=== PATIENT | male | born 1970 | race Caucasian/White ===

== ENCOUNTER 2017-04-10 17:04 | Outpatient (CLI) | payer OTHER | END 2017-04-10 17:05 | disposition EMS.NT | LOC: EMS 17:04 | PROVIDERS: ATTEND Surgery | DX: Z04.1 Encounter for examination and observation following transport accident (principal); V59.9XXA Occupant (driver) (passenger) of pick-up truck or van injured in unspecified traffic accident, initial encounter; Y92.488 Other paved roadways as the place of occurrence of the external cause ==

== ENCOUNTER 2017-04-10 18:19 | Emergency (ER) | payer OTHER ==
[2017-04-10 18:45] VITALS: BP 162/108
[2017-04-10] MEDS ORDERED: IBUPROFEN 400 MG TABLET PO STA (20:22)
[2017-04-10] MEDS ORDERED: IBUPROFEN 400 MG TABLET PO ONE (20:34)
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
== END 2017-04-10 21:56 | disposition home or self-care (01) ==
LOC: ED 18:19
DX: T14.8 Other injury of unspecified body region (principal); V48.0XXA Car driver injured in noncollision transport accident in nontraffic accident, initial encounter; R10.33 Periumbilical pain
CPT/HCPCS: 99283; A9270

== ENCOUNTER 2020-06-06 07:08 | Outpatient (CLI) | payer OTHER ==
[2020-06-06 13:21] LABS: BASOPHILS % (AUTO) 0.7 %; EOSINOPHILS # (AUTO) 0.1 10^3/uL (0.0-0.7); EOSINOPHILS % (AUTO) 2.4 %; HGB - HEMOGLOBIN 14.5 g/dL (14.0-18.0); LYMPHOCYTES # (AUTO) 1.4 10^3/uL (1.5-3.5); MEAN CORPUSCULAR HEMOGLOBIN 29.4 pg (27.0-31.0); MEAN CORPUSCULAR HGB CONC 32.4 g/dL (32.0-36.0); MEAN CORPUSCULAR VOLUME 90.9 fL (80.0-94.0); MEAN PLATELET VOLUME 9.6 fL (7.4-11.4); MONOCYTES # (AUTO) 0.5 10^3/uL (0.0-1.0); MONOCYTES % (AUTO) 8.5 %; NEUTROPHILS # (AUTO) 3.5 10^3/uL (1.5-6.6); PLT - PLATELET COUNT 255 10^3/uL (130-450); RED BLOOD COUNT 4.93 10^6/uL (4.70-6.10); RED CELL DISTRIBUTION WIDTH 13.2 % (12.0-15.0); WHITE BLOOD COUNT 5.5 x10^3/uL (4.8-10.8)
[2020-06-06 14:11] LABS: ALBUMIN 4.1 g/dL (3.2-5.5); ALBUMIN/GLOBULIN RATIO 1.5 (1.0-2.2); ALKALINE PHOSPHATASE 110 IU/L (42-121); ALT ALANINE AMINOTRANSFERASE 29 IU/L (10-60); AST ASPARTATE AMINOTRANSFERASE 19 IU/L (10-42); BILIRUBIN,TOTAL 1.9 mg/dL (0.2-1.0); BUN - BLOOD UREA NITROGEN 11 mg/dL (6-20); CALCIUM 9.2 mg/dL (8.5-10.3); CARBON DIOXIDE - CO2 27 mmol/L (21-32); CHLORIDE 106 mmol/L (101-111); CHOL/HDL RATIO 4.8 (<5.0); CHOLESTEROL 163 mg/dL; CREATININE 0.8 mg/dL (0.6-1.2); GLUCOSE 102 mg/dL (70-100); HDL CHOLESTEROL 34 mg/dL; LDL CHOLESTEROL,CALCULATED 110 mg/dL; LDL/HDL RATIO 3.2 (<3.6); SODIUM 140 mmol/L (135-145); TOTAL PROTEIN 6.9 g/dL (6.7-8.2); VLDL CHOLESTEROL 19 mg/dL
== END 2020-06-06 23:59 | disposition home or self-care (01) ==
LOC: LAB.WCP 07:08
PROVIDERS: ATTEND Family Medicine
DX: I10 Essential (primary) hypertension (principal); K80.10 Calculus of gallbladder with chronic cholecystitis without obstruction; Z12.5 Encounter for screening for malignant neoplasm of prostate
CPT/HCPCS: 36415; 80053; 80061; 83721; 84153; 84443; 85025

== ENCOUNTER 2020-12-13 07:02 | Outpatient (CLI) | payer OTHER ==
[2020-12-13 13:30] LABS: ESTIMATED AVERAGE GLUCOSE 94 mg/dL (70-100); HEMOGLOBIN A1c% 4.9 % (4.27-6.07)
== END 2020-12-13 23:59 | disposition home or self-care (01) ==
LOC: LAB.WCP 07:02
PROVIDERS: ATTEND Family Medicine
DX: R73.9 Hyperglycemia, unspecified (principal)
CPT/HCPCS: 36415; 83036

== ENCOUNTER 2021-03-23 08:00 | Outpatient (CLI) | payer OTHER ==
[2021-03-23 12:06] LABS: CALCIUM 9.2 mg/dL (8.5-10.3); CREATININE 0.9 mg/dL (0.6-1.2); POTASSIUM 3.9 mmol/L (3.5-5.0)
== END 2021-03-23 23:59 | disposition home or self-care (01) ==
LOC: LAB.WCP 08:00
PROVIDERS: ATTEND Family Medicine
DX: I10 Essential (primary) hypertension (principal)
CPT/HCPCS: 36415; 80048

== ENCOUNTER 2021-12-19 07:05 | Outpatient (CLI) | payer OTHER ==
[2021-12-19 12:02] LABS: BASOPHILS % (AUTO) 0.5 %; EOSINOPHILS # (AUTO) 0.2 10^3/uL (0.0-0.7); EOSINOPHILS % (AUTO) 2.5 %; HCT - HEMATOCRIT 46.4 % (42.0-52.0); HGB - HEMOGLOBIN 16.3 g/dL (14.0-18.0); LYMPHOCYTES # (AUTO) 1.4 10^3/uL (1.5-3.5); LYMPHOCYTES % (AUTO) 24.4 %; MEAN CORPUSCULAR HGB CONC 35.1 g/dL (32.0-36.0); MEAN CORPUSCULAR VOLUME 88.2 fL (80.0-94.0); MEAN PLATELET VOLUME 9.6 fL (7.4-11.4); MONOCYTES # (AUTO) 0.5 10^3/uL (0.0-1.0); MONOCYTES % (AUTO) 8.8 %; NEUTROPHILS # (AUTO) 3.7 10^3/uL (1.5-6.6); NEUTROPHILS % (AUTO) 63.1 %; PLT - PLATELET COUNT 256 10^3/uL (130-450); RED BLOOD COUNT 5.26 10^6/uL (4.70-6.10); RED CELL DISTRIBUTION WIDTH 12.2 % (12.0-15.0); WHITE BLOOD COUNT 5.9 x10^3/uL (4.8-10.8)
[2021-12-19 12:17] LABS: ALBUMIN 4.4 g/dL (3.2-5.5); ALBUMIN/GLOBULIN RATIO 1.4 (1.0-2.2); ALKALINE PHOSPHATASE 79 IU/L (42-121); ALT ALANINE AMINOTRANSFERASE 35 IU/L (10-60); AST ASPARTATE AMINOTRANSFERASE 23 IU/L (10-42); BILIRUBIN,TOTAL 2.1 mg/dL (0.2-1.0); BUN - BLOOD UREA NITROGEN 12 mg/dL (6-20); CALCIUM 9.3 mg/dL (8.5-10.3); CARBON DIOXIDE - CO2 28 mmol/L (21-32); CHLORIDE 101 mmol/L (101-111); CHOL/HDL RATIO 4.9 (<5.0); CHOLESTEROL 188 mg/dL; CREATININE 0.9 mg/dL (0.6-1.2); GFR - MDRD 89 (>89); GLUCOSE 110 mg/dL (70-100); HDL CHOLESTEROL 38 mg/dL; LDL CHOLESTEROL,CALCULATED 128 mg/dL; LDL/HDL RATIO 3.4 (<3.6); POTASSIUM 3.6 mmol/L (3.5-5.0); SODIUM 138 mmol/L (135-145); TOTAL PROTEIN 7.6 g/dL (6.7-8.2); TRIGLYCERIDES 108 mg/dL; VLDL CHOLESTEROL 22 mg/dL
[2021-12-19 12:23] LABS: THYROID STIMULATING HORMONE 1.76 uIU/mL (0.34-5.60)
== END 2021-12-19 07:06 | disposition home or self-care (01) ==
LOC: LAB.N 07:05
PROVIDERS: ATTEND Family Medicine
DX: E66.9 Obesity, unspecified (principal); I10 Essential (primary) hypertension; Z12.5 Encounter for screening for malignant neoplasm of prostate
CPT/HCPCS: 36415; 80053; 80061; 83721; 84153; 84443; 85025

== ENCOUNTER 2022-06-26 09:53 | Emergency (ER) | payer OTHER ==
--- NOTE | 2022-06-26 10:07 | ED Physician Documentation ---
PD HPI LOWER EXT INJURY - Stated complaint Stated Complaint: R LEG PX - Chief complaint Chief Complaint: Ext Problem - History obtained from History obtained from: Patient - History of Present Illness PD HPI LOW EXT INJURY LOCATION: Right, Foot, Other (heel) Type of injury: No: Fall, Twist Timing - onset: How many weeks ago (onset of medial right foot redness and swelling at medial arch 1 week ago. Seen at [facility] and Dx with cellulitis, and Rx Keflex. Patient states red/swelling improved/gone over a few days. Was walking with less pressure medially. Now 2 days of heel/Achilles area pain and swelling without redness) Timing - duration: Days Timing - details: Gradual onset, Still present Improved by: Rest Worsened by: Moving (plantarflexing.), Palpating (mid achilles area) Associated symptoms: Swelling (currently with area of swelling over the mid achilles. No redness, sores, rash.). No: Weakness, Numbness Similar symptoms before: Has not had sx before Recently seen: Clinic (went to walk in today and referred to ER for eval of DVT.), Emergency Dept (5 days ago at [facility] and Rx Keflex for foot cellulitis, which has receded/gone after few days on abx.) Review of Systems Constitutional: denies: Fever, Chills GI: denies: Nausea, Vomiting Skin: denies: Abrasion (s), Laceration (s) Neurologic: denies: Focal weakness, Numbness PD PAST MEDICAL HISTORY - Past Medical History Cardiovascular: Hypertension Respiratory: None Endocrine/Autoimmune: None - Past Surgical History Past Surgical History: Yes Ortho: ACL reconstruction - Present Medications Home Medications: Ambulatory Orders Medication Instructions Recorded Confirmed amLODIPine [Norvasc] 5 mg PO DAILY 06/26/22 06/26/22 cephALEXin [Keflex] 500 mg PO Q6H 06/26/22 06/26/22 hydroCHLOROthiazide [Hydrodiuril] 12.5 mg PO DAILY 06/26/22 06/26/22 - Allergies Allergies/Adverse Reactions: Allergies Allergy/AdvReac Type Severity Reaction Status Date / Time No Known Drug Allergies Allergy Verified 06/26/22 10:02 - Social History Does the pt smoke?: No Smoking Status: Never smoker - Family History Family history: denies: Venous thromboembolism PD ED PE NORMAL - Vitals Vital signs reviewed: Yes - General General: Alert and oriented X 3, No acute distress, Well developed/nourished - Derm Derm: Normal color, Warm and dry - Extremities Extremities: Other (right medial arch of foot with faint pink deeper color c/w healing tissue. Not red nor warm. Appears the infection has gone. Achilles with firm/intact cord of it. There is 1 cm area of posterior swelling of achilles that is tender. Strong plantarflexion but hurts. Seems c/w tendonitits.) - Neuro Neuro: No motor deficit, No sensory deficit Results - Vitals Vitals: Vital Signs - 24 hr 06/26/22 06/26/22 09:58 11:48 Temperature 36.5 C Heart Rate 93 81 Respiratory 16 Rate Blood Pressure 151/87 H 138/88 H O2 Saturation 99 Oxygen O2 Source Room air - Rads (name of study) duplex u/s Radiology: Prelim report reviewed (no dvt), See rad report PD MEDICAL DECISION MAKING - ED course Complexity details: reviewed results (duplex without DVT. ), considered differential (not really tender in calf but noted some distended veins on foot. Had had foot skin infection that is improved. Rx with Keflex (not cipro). had walked different when foot hurting, patient admits. CLinically with some achilles tendonitis, but no feel of partial tear. ), d/w patient, d/w family (spouse) Departure - Departure Disposition: 01 Home, Self Care Clinical Impression: Achilles tendonitis, Calf pain Condition: Stable Record reviewed to determine appropriate education?: Yes Follow-Up: Isauro Blanco MD [Primary Care Provider] - Comments: Your ultrasound is normal without any signs of blood clots. On exam this seems likely to be an Achilles tendinitis with some inflammation there. I presume it was from unusual stress on the ankle because of your foot infection causing altered ambulation. At this point I would suggest some stretching of the Achilles and gentle use. Still off work then through the weekend. Consider regular anti-inflammatory such as ibuprofen or naproxen 2-3 [id number] tablets twice daily for the next 5 to 6 days. Add Tylenol if needed for pain. Recheck if not improved well over the next 5 days. Progress activity as tolerated. Forms: Activity restrictions Discharge Date/Time: 06/26/22 11:48
[2022-06-26] MEDS ORDERED: NAPROXEN 250 MG TABLET PO STA (10:17)
--- OUTSIDE RECORDS SUMMARY | 2022-06-26 10:30 | EXTERNAL MEDICAL SUMMARY RPT | Continuity of Care Document ---
:1970 Author Organization [facility] Address [address] [place] [address] Phone Allergies and Intolerances date description facility type (no date) No Known Drug Allergies [facility] (unkn own) Encounters No information. Functional Status No information. Immunizations No information. Medications No information. Problems No information. Procedures No information. Results/Labs test date author facility value unit interpret ation Result panel 1 (unknown) (no (unknown) (unknown) (no value) (units (unk nown) date) unknown) (unknown) (no (unknown) (unknown) (Zofran) (units (unkno wn) date) vomiting #12 tabs unknown) (unknown) (no (unknown) (unknown) 1 tab PO Q6H PRN (units (unknown) date) (Reason: pain) unknown) Qty: 12 0RF (unknown) (no (unknown) (unknown) 06/21/22 (units (unkno wn) date) unknown) (unknown) (no (unknown) (unknown) 100 mg PO BID (units ( unknown) date) Qty: 20 0RF unknown) (unknown) (no (unknown) (unknown) 16:55 (units (unkno wn) date) unknown) (unknown) (no (unknown) (unknown) 20 mg PO QID PRN (units (unknown) date) (Reason: unknown) abdominal discomfort) Qty: 15 0RF (unknown) (no (unknown) (unknown) 4 mg PO Q6H PRN (units (unknown) date) (Reason: nausea unknown) and vomiting) Qty: 12 0RF (unknown) (no (unknown) (unknown) 5 mg PO DAILY (units ( unknown) date) Qty: 30 0RF unknown) (unknown) (no (unknown) (unknown) 5 mg PO Q4H PRN (units (unknown) date) (Reason: post unknown) operative pain) Qty: 30 0RF (unknown) (no (unknown) (unknown) 52-year-old male (units (unknown) date) presents to the unknown) emergency department due to right foot erythema (unknown) (no (unknown) (unknown) : [id number] (units (u nknown) date) unknown) (unknown) (no (unknown) (unknown) Age/Sex: 52 / M (units (unknown) date) unknown) (unknown) (no (unknown) (unknown) Allergies (units (unkn own) date) unknown) (unknown) (no (unknown) (unknown) Allergy/AdvReac (units (unknown) date) Type Severity unknown) Reaction Status Date / Time (unknown) (no (unknown) (unknown) Blood Pressure (units (unknown) date) 153/85 H 06/21/22 unknown) 16:55 (unknown) (no (unknown) (unknown) Blood Pressure (units (unknown) date) 153/85 H unknown) (unknown) (no (unknown) (unknown) Chief Complaint: (units (unknown) date) Extremity Injury, unknown) Lower (unknown) (no (unknown) (unknown) Course (units (unkno wn) date) unknown) (unknown) (no (unknown) (unknown) : 1970 (units (unknown) date) Acct:[id number] unknown) (unknown) (no (unknown) (unknown) Date of Service: (units (unknown) date) 06/21/22 unknown) (unknown) (no (unknown) (unknown) Departure (units (unkn own) date) unknown) (unknown) (no (unknown) (unknown) Discharge Plan (units (unknown) date) unknown) (unknown) (no (unknown) (unknown) ER Physician: (units ( unknown) date) Suleiman Rodriguez P.A-C unknown) (unknown) (no (unknown) (unknown) Emergency Report (units (unknown) date) unknown) (unknown) (no (unknown) (unknown) Exam (units (unkno wn) date) unknown) (unknown) (no (unknown) (unknown) Family History (units (unknown) date) (Reviewed unknown) 04/28/20 @ 15:19 by Luba Bobby MD) (unknown) (no (unknown) (unknown) Father (units (unkno wn) date) Hypertension unknown) (unknown) (no (unknown) (unknown) Gallstones (units (unk nown) date) unknown) (unknown) (no (unknown) (unknown) General (units (unkno wn) date) unknown) (unknown) (no (unknown) (unknown) HPI - Extremity (units (unknown) date) Injury (Lower) unknown) (unknown) (no (unknown) (unknown) HPI Narrative: (units (unknown) date) unknown) (unknown) (no (unknown) (unknown) HTN (units (unkno wn) date) (hypertension) unknown) (unknown) (no (unknown) (unknown) History of (units (unk nown) date) Present Illness unknown) (unknown) (no (unknown) (unknown) History of (units (unk nown) date) repair of ACL unknown) (unknown) (no (unknown) (unknown) Hx of knee (units (unk nown) date) surgery unknown) (unknown) (no (unknown) (unknown) Hx of vasectomy (units (unknown) date) unknown) (unknown) (no (unknown) (unknown) Initial Vital (units ( unknown) date) Signs unknown) (unknown) (no (unknown) (unknown) Initial Vital (units ( unknown) date) Signs: unknown) (unknown) (no (unknown) (unknown) [facility] (units (unknown) date) [address] [place] [address] unknown) [place] [address] (unknown) (no (unknown) (unknown) Medical History (units (unknown) date) (Updated 01/23/22 unknown) @ 00:00 by ) (unknown) (no (unknown) (unknown) Medication (units (unk nown) date) Instructions unknown) Recorded (unknown) (no (unknown) (unknown) Mode of arrival: (units (unknown) date) Ambulatory unknown) (unknown) (no (unknown) (unknown) Mother Breast (units ( unknown) date) cancer unknown) (unknown) (no (unknown) (unknown) No Action (units (unkn own) date) unknown) (unknown) (no (unknown) (unknown) No Known Drug (units ( unknown) date) Allergies Allergy unknown) Verified 04/28/20 09:47 (unknown) (no (unknown) (unknown) Oxygen Delivery (units (unknown) date) Method 06/21/22 unknown) 16:55 (unknown) (no (unknown) (unknown) Oxygen Delivery (units (unknown) date) Method Room Air unknown) (unknown) (no (unknown) (unknown) Patient History (units (unknown) date) unknown) (unknown) (no (unknown) (unknown) Patient denies (units (unknown) date) medical problems unknown) (unknown) (no (unknown) (unknown) Patient: Michelle (units (unknown) date) Owen Leonard MR# unknown) (unknown) (no (unknown) (unknown) Prescriptions: (units (unknown) date) unknown) (unknown) (no (unknown) (unknown) Previous Rx's (units ( unknown) date) unknown) (unknown) (no (unknown) (unknown) Pulse Oximetry (units (unknown) date) 96 06/21/22 16:55 unknown) (unknown) (no (unknown) (unknown) Pulse Oximetry (units (unknown) date) 96 unknown) (unknown) (no (unknown) (unknown) Pulse Rate 86 (units ( unknown) date) 06/21/22 16:55 unknown) (unknown) (no (unknown) (unknown) Pulse Rate 86 (units ( unknown) date) unknown) (unknown) (no (unknown) (unknown) Related Data (units (u nknown) date) unknown) (unknown) (no (unknown) (unknown) Respiratory Rate (units (unknown) date) 20 06/21/22 16:55 unknown) (unknown) (no (unknown) (unknown) Respiratory Rate (units (unknown) date) 20 unknown) (unknown) (no (unknown) (unknown) Signed By: (units (unk nown) date) unknown) (unknown) (no (unknown) (unknown) Smoking Status: (units (unknown) date) Never smoker unknown) (unknown) (no (unknown) (unknown) Social History (units (unknown) date) (Reviewed unknown) 04/28/20 @ 15:19 by Luba Bobby MD) (unknown) (no (unknown) (unknown) Source: patient (units (unknown) date) unknown) (unknown) (no (unknown) (unknown) Stated (units (unkno wn) date) Complaint: rt unknown) foot pain, swelling a lot (unknown) (no (unknown) (unknown) Substance Use (units ( unknown) date) Type: does not unknown) use (unknown) (no (unknown) (unknown) Surgical History (units (unknown) date) (Reviewed unknown) 04/28/20 @ 15:19 by Luba Bobby MD) (unknown) (no (unknown) (unknown) Temperature 97.1 (units (unknown) date) F L 06/21/22 unknown) 16:55 (unknown) (no (unknown) (unknown) Temperature 97.1 (units (unknown) date) F L unknown) (unknown) (no (unknown) (unknown) Then the redness (units (unknown) date) developing became unknown) concerned. Patient is nondiabetic is a (unknown) (no (unknown) (unknown) Time Seen by (units (u nknown) date) Provider: unknown) 06/21/22 18:14 (unknown) (no (unknown) (unknown) Vital Signs - 8 (units (unknown) date) hr unknown) (unknown) (no (unknown) (unknown) Vital Signs (units (un known) date) unknown) (unknown) (no (unknown) (unknown) Vital signs: (units (u nknown) date) unknown) (unknown) (no (unknown) (unknown) alcohol intake (units (unknown) date) frequency: a few unknown) times a week (unknown) (no (unknown) (unknown) alcohol intake: (units (unknown) date) current unknown) (unknown) (no (unknown) (unknown) amlodipine 5 mg (units (unknown) date) tablet 5 mg PO unknown) DAILY #30 tabs 03/27/20 (unknown) (no (unknown) (unknown) amlodipine 5 mg (units (unknown) date) tablet unknown) (unknown) (no (unknown) (unknown) dicyclomine 20 (units (unknown) date) mg tablet 20 mg unknown) PO QID PRN abdominal 03/27/20 (unknown) (no (unknown) (unknown) dicyclomine 20 (units (unknown) date) mg tablet unknown) (unknown) (no (unknown) (unknown) discomfort #15 (units (unknown) date) tabs unknown) (unknown) (no (unknown) (unknown) docusate sodium (units (unknown) date) 100 mg capsule unknown) 100 mg PO BID prevent constipation 04/13/20 (unknown) (no (unknown) (unknown) docusate sodium (units (unknown) date) 100 mg capsule unknown) (unknown) (no (unknown) (unknown) from pain meds (units (unknown) date) #20 caps unknown) (unknown) (no (unknown) (unknown) household (units (unkn own) date) members: spouse unknown) (unknown) (no (unknown) (unknown) hydrocodone 5 (units ( unknown) date) mg-acetaminophen unknown) 325 1 tab PO Q6H PRN pain #12 tabs 03/27/20 (unknown) (no (unknown) (unknown) hydrocodone-acet (units (unknown) date) aminophen [Lindon] unknown) 5-325 mg tablet (unknown) (no (unknown) (unknown) marital status: (units (unknown) date) unknown) (unknown) (no (unknown) (unknown) mg tablet (units (unkn own) date) (Lindon) unknown) (unknown) (no (unknown) (unknown) occupational (units (u nknown) date) status: employed unknown) (unknown) (no (unknown) (unknown) ondansetron HCl (units (unknown) date) 4 mg tablet 4 mg unknown) PO Q6H PRN nausea and 03/27/20 (unknown) (no (unknown) (unknown) ondansetron HCl (units (unknown) date) [Zofran] 4 mg unknown) tablet (unknown) (no (unknown) (unknown) oxycodone 5 mg (units (unknown) date) tablet 5 mg PO unknown) Q4H PRN post operative 04/13/20 (unknown) (no (unknown) (unknown) oxycodone 5 mg (units (unknown) date) tablet unknown) (unknown) (no (unknown) (unknown) pain #30 tabs (units ( unknown) date) unknown) (unknown) (no (unknown) (unknown) substance use (units ( unknown) date) type: does not unknown) use (unknown) (no (unknown) (unknown) swelling onset (units (unknown) date) approximately 3 unknown) days ago. He is not recall any acute injuries to (unknown) (no (unknown) (unknown) the foot. States (units (unknown) date) that it became unknown) mild Result panel 2 (unknown) (no (unknown) (unknown) (no value) (units (unk nown) date) unknown) (unknown) (no (unknown) (unknown) (Zofran) (units (unkno wn) date) vomiting #12 tabs unknown) (unknown) (no (unknown) (unknown) 1 tab PO Q6H PRN (units (unknown) date) (Reason: pain) unknown) Qty: 12 0RF (unknown) (no (unknown) (unknown) 06/21/22 (units (unkno wn) date) unknown) (unknown) (no (unknown) (unknown) 100 mg PO BID (units ( unknown) date) Qty: 20 0RF unknown) (unknown) (no (unknown) (unknown) 12 point review (units (unknown) date) of systems is unknown) negative except for those stated above (unknown) (no (unknown) (unknown) 16:55 (units (unkno wn) date) unknown) (unknown) (no (unknown) (unknown) 20 mg PO QID PRN (units (unknown) date) (Reason: unknown) abdominal discomfort) Qty: 15 0RF (unknown) (no (unknown) (unknown) 4 mg PO Q6H PRN (units (unknown) date) (Reason: nausea unknown) and vomiting) Qty: 12 0RF (unknown) (no (unknown) (unknown) 5 mg PO DAILY (units ( unknown) date) Qty: 30 0RF unknown) (unknown) (no (unknown) (unknown) 5 mg PO Q4H PRN (units (unknown) date) (Reason: post unknown) operative pain) Qty: 30 0RF (unknown) (no (unknown) (unknown) 52-year-old male (units (unknown) date) presents to the unknown) emergency department due to right foot erythema (unknown) (no (unknown) (unknown) : [id number] (units (u nknown) date) unknown) (unknown) (no (unknown) (unknown) Age/Sex: 52 / M (units (unknown) date) unknown) (unknown) (no (unknown) (unknown) Allergies (units (unkn own) date) unknown) (unknown) (no (unknown) (unknown) Allergy/AdvReac (units (unknown) date) Type Severity unknown) Reaction Status Date / Time (unknown) (no (unknown) (unknown) BACK: Nontender (units (unknown) date) without deformity unknown) or crepitance. No flank tenderness. (unknown) (no (unknown) (unknown) Blood Pressure (units (unknown) date) 153/85 H 06/21/22 unknown) 16:55 (unknown) (no (unknown) (unknown) Blood Pressure (units (unknown) date) 153/85 H unknown) (unknown) (no (unknown) (unknown) CARDIOVASCULAR: (units (unknown) date) Denies chest unknown) pain, palpitations, orthopnea, edema, (unknown) (no (unknown) (unknown) CARDIOVASCULAR: (units (unknown) date) Regular rate and unknown) rhythm without murmurs, gallops, or rubs. (unknown) (no (unknown) (unknown) Chief Complaint: (units (unknown) date) Extremity Injury, unknown) Lower (unknown) (no (unknown) (unknown) Course (units (unkno wn) date) unknown) (unknown) (no (unknown) (unknown) : 1970 (units (unknown) date) Acct:[id number] unknown) (unknown) (no (unknown) (unknown) Date of Service: (units (unknown) date) 06/21/22 unknown) (unknown) (no (unknown) (unknown) Departure (units (unkn own) date) unknown) (unknown) (no (unknown) (unknown) Discharge Plan (units (unknown) date) unknown) (unknown) (no (unknown) (unknown) ENT: Nose (units (unkn own) date) without bleeding, unknown) purulent drainage. Throat without erythema, (unknown) (no (unknown) (unknown) ER Physician: (units ( unknown) date) Suleiman Rodriguez P.A-C unknown) (unknown) (no (unknown) (unknown) EXTREMITIES: No (units (unknown) date) edema or joint unknown) tenderness. (unknown) (no (unknown) (unknown) EYES: Pupils (units (u nknown) date) equal round and unknown) reactive. Extraocular motions intact. No scleral (unknown) (no (unknown) (unknown) Emergency Report (units (unknown) date) unknown) (unknown) (no (unknown) (unknown) Exam Narrative: (units (unknown) date) unknown) (unknown) (no (unknown) (unknown) Exam (units (unkno wn) date) unknown) (unknown) (no (unknown) (unknown) Family History (units (unknown) date) (Reviewed unknown) 04/28/20 @ 15:19 by Luab Bobby MD) (unknown) (no (unknown) (unknown) Father (units (unkno wn) date) Hypertension unknown) (unknown) (no (unknown) (unknown) GASTROINTESTINAL (units (unknown) date) : Abdomen soft, unknown) non-tender, nondistended. (unknown) (no (unknown) (unknown) GASTROINTESTINAL (units (unknown) date) : Denies nausea, unknown) vomiting, abdominal pain, diarrhea, (unknown) (no (unknown) (unknown) GENERAL: Denies (units (unknown) date) chills, fatigue, unknown) malaise, fever, sweats. (unknown) (no (unknown) (unknown) GENERAL: (units (unkno wn) date) Well-developed unknown) patient, in mild distress. (unknown) (no (unknown) (unknown) : Denies (units (unk nown) date) dysuria, unknown) frequency, incontinence, hematuria, urinary retention. (unknown) (no (unknown) (unknown) Gallstones (units (unk nown) date) unknown) (unknown) (no (unknown) (unknown) General (units (unkno wn) date) unknown) (unknown) (no (unknown) (unknown) HEAD: (units (unkno wn) date) Atraumatic. unknown) Normocephalic. (unknown) (no (unknown) (unknown) HEENT: Denies (units ( unknown) date) sinus pain, ear unknown) pain, sore throat, difficulty swallowing, (unknown) (no (unknown) (unknown) HPI - Extremity (units (unknown) date) Injury (Lower) unknown) (unknown) (no (unknown) (unknown) HPI Narrative: (units (unknown) date) unknown) (unknown) (no (unknown) (unknown) HTN (units (unkno wn) date) (hypertension) unknown) (unknown) (no (unknown) (unknown) History of (units (unk nown) date) Present Illness unknown) (unknown) (no (unknown) (unknown) History of (units (unk nown) date) repair of ACL unknown) (unknown) (no (unknown) (unknown) Hx of knee (units (unk nown) date) surgery unknown) (unknown) (no (unknown) (unknown) Hx of vasectomy (units (unknown) date) unknown) (unknown) (no (unknown) (unknown) Initial Vital (units ( unknown) date) Signs unknown) (unknown) (no (unknown) (unknown) Initial Vital (units ( unknown) date) Signs: unknown) (unknown) (no (unknown) (unknown) [facility] (units (unknown) date) [address] unknown) [place] [address] (unknown) (no (unknown) (unknown) MUSCULOSKELETAL: (units (unknown) date) denies weakness, unknown) joint pain, or bony pain (unknown) (no (unknown) (unknown) Medical History (units (unknown) date) (Updated 01/23/22 unknown) @ 00:00 by ) (unknown) (no (unknown) (unknown) Medication (units (unk nown) date) Instructions unknown) Recorded (unknown) (no (unknown) (unknown) Mode of arrival: (units (unknown) date) Ambulatory unknown) (unknown) (no (unknown) (unknown) Mother Breast (units ( unknown) date) cancer unknown) (unknown) (no (unknown) (unknown) NECK: Trachea (units ( unknown) date) midline. Non unknown) tender (unknown) (no (unknown) (unknown) NEURO: AOx3. (units (u nknown) date) unknown) (unknown) (no (unknown) (unknown) NEUROLOGIC: (units (un known) date) Denies weakness, unknown) headache, numbness, change in speech, confusion, (unknown) (no (unknown) (unknown) Narrative (units (unkn own) date) unknown) (unknown) (no (unknown) (unknown) Narrative: (units (unk nown) date) unknown) (unknown) (no (unknown) (unknown) No Action (units (unkn own) date) unknown) (unknown) (no (unknown) (unknown) No Known Drug (units ( unknown) date) Allergies Allergy unknown) Verified 04/28/20 09:47 (unknown) (no (unknown) (unknown) Oxygen Delivery (units (unknown) date) Method 06/21/22 unknown) 16:55 (unknown) (no (unknown) (unknown) Oxygen Delivery (units (unknown) date) Method Room Air unknown) (unknown) (no (unknown) (unknown) PSYCHIATRIC: No (units (unknown) date) concerning unknown) psychosocial issues. (unknown) (no (unknown) (unknown) Patient History (units (unknown) date) unknown) (unknown) (no (unknown) (unknown) Patient denies (units (unknown) date) medical problems unknown) (unknown) (no (unknown) (unknown) Patient: Michelle (units (unknown) date) Owen Leonard MR# unknown) (unknown) (no (unknown) (unknown) Prescriptions: (units (unknown) date) unknown) (unknown) (no (unknown) (unknown) Previous Rx's (units ( unknown) date) unknown) (unknown) (no (unknown) (unknown) Pulse Oximetry (units (unknown) date) 96 06/21/22 16:55 unknown) (unknown) (no (unknown) (unknown) Pulse Oximetry (units (unknown) date) 96 unknown) (unknown) (no (unknown) (unknown) Pulse Rate 86 (units ( unknown) date) 06/21/22 16:55 unknown) (unknown) (no (unknown) (unknown) Pulse Rate 86 (units ( unknown) date) unknown) (unknown) (no (unknown) (unknown) RESPIRATORY: (units (un known) date) Clear to unknown) auscultation. Breath sounds equal bilaterally. No wheezes, (unknown) (no (unknown) (unknown) RESPIRATORY: (units (u nknown) date) Denies dyspnea, unknown) cough, wheezing, hemoptysis, sputum. (unknown) (no (unknown) (unknown) Related Data (units (u nknown) date) unknown) (unknown) (no (unknown) (unknown) Respiratory Rate (units (unknown) date) 20 06/21/22 16:55 unknown) (unknown) (no (unknown) (unknown) Respiratory Rate (units (unknown) date) 20 unknown) (unknown) (no (unknown) (unknown) Review of (units (unkn own) date) Systems unknown) (unknown) (no (unknown) (unknown) SKIN: Cool area (units (unknown) date) of erythema to unknown) the medial aspect of the foot. No areas of (unknown) (no (unknown) (unknown) SKIN: Foot rash (units (unknown) date) unknown) (unknown) (no (unknown) (unknown) Signed By: (units (unk nown) date) unknown) (unknown) (no (unknown) (unknown) Smoking Status: (units (unknown) date) Never smoker unknown) (unknown) (no (unknown) (unknown) Social History (units (unknown) date) (Reviewed unknown) 04/28/20 @ 15:19 by Luba Bobby MD) (unknown) (no (unknown) (unknown) Source: patient (units (unknown) date) unknown) (unknown) (no (unknown) (unknown) Stated (units (unkno wn) date) Complaint: rt unknown) foot pain, swelling a lot (unknown) (no (unknown) (unknown) Substance Use (units ( unknown) date) Type: does not unknown) use (unknown) (no (unknown) (unknown) Surgical History (units (unknown) date) (Reviewed unknown) 04/28/20 @ 15:19 by Luba Bobby MD) (unknown) (no (unknown) (unknown) Temperature 97.1 (units (unknown) date) F L 06/21/22 unknown) 16:55 (unknown) (no (unknown) (unknown) Temperature 97.1 (units (unknown) date) F L unknown) (unknown) (no (unknown) (unknown) Then the redness (units (unknown) date) developing became unknown) concerned. Patient is nondiabetic is a (unknown) (no (unknown) (unknown) Time Seen by (units (u nknown) date) Provider: unknown) 06/21/22 18:14 (unknown) (no (unknown) (unknown) Vital Signs - 8 (units (unknown) date) hr unknown) (unknown) (no (unknown) (unknown) Vital Signs (units (un known) date) unknown) (unknown) (no (unknown) (unknown) Vital signs: (units (u nknown) date) unknown) (unknown) (no (unknown) (unknown) alcohol intake (units (unknown) date) frequency: a few unknown) times a week (unknown) (no (unknown) (unknown) alcohol intake: (units (unknown) date) current unknown) (unknown) (no (unknown) (unknown) amlodipine 5 mg (units (unknown) date) tablet 5 mg PO unknown) DAILY #30 tabs 03/27/20 (unknown) (no (unknown) (unknown) amlodipine 5 mg (units (unknown) date) tablet unknown) (unknown) (no (unknown) (unknown) being diabetic. (units (unknown) date) unknown) (unknown) (no (unknown) (unknown) constipation, (units ( unknown) date) melena. unknown) (unknown) (no (unknown) (unknown) dicyclomine 20 (units (unknown) date) mg tablet 20 mg unknown) PO QID PRN abdominal 03/27/20 (unknown) (no (unknown) (unknown) dicyclomine 20 (units (unknown) date) mg tablet unknown) (unknown) (no (unknown) (unknown) discomfort #15 (units (unknown) date) tabs unknown) (unknown) (no (unknown) (unknown) dizziness. (units (unk nown) date) unknown) (unknown) (no (unknown) (unknown) docusate sodium (units (unknown) date) 100 mg capsule unknown) 100 mg PO BID prevent constipation 04/13/20 (unknown) (no (unknown) (unknown) docusate sodium (units (unknown) date) 100 mg capsule unknown) (unknown) (no (unknown) (unknown) expressing (units (unk nown) date) concern. Denies unknown) any fevers, nausea, vomiting, or chills. Denies (unknown) (no (unknown) (unknown) fluctuance. (units (un known) date) Diffuse mild unknown) tenderness to palpation. (unknown) (no (unknown) (unknown) from pain meds (units (unknown) date) #20 caps unknown) (unknown) (no (unknown) (unknown) household (units (unkn own) date) members: spouse unknown) (unknown) (no (unknown) (unknown) hydrocodone 5 (units ( unknown) date) mg-acetaminophen unknown) 325 1 tab PO Q6H PRN pain #12 tabs 03/27/20 (unknown) (no (unknown) (unknown) hydrocodone-acet (units (unknown) date) aminophen [Lindon] unknown) 5-325 mg tablet (unknown) (no (unknown) (unknown) icterus. No (units (un known) date) injection or unknown) drainage. (unknown) (no (unknown) (unknown) marital status: (units (unknown) date) unknown) (unknown) (no (unknown) (unknown) mg tablet (units (unkn own) date) (Lindon) unknown) (unknown) (no (unknown) (unknown) occupational (units (u nknown) date) status: employed unknown) (unknown) (no (unknown) (unknown) ondansetron HCl (units (unknown) date) 4 mg tablet 4 mg unknown) PO Q6H PRN nausea and 03/27/20 (unknown) (no (unknown) (unknown) ondansetron HCl (units (unknown) date) [Zofran] 4 mg unknown) tablet (unknown) (no (unknown) (unknown) oxycodone 5 mg (units (unknown) date) tablet 5 mg PO unknown) Q4H PRN post operative 04/13/20 (unknown) (no (unknown) (unknown) oxycodone 5 mg (units (unknown) date) tablet unknown) (unknown) (no (unknown) (unknown) pain #30 tabs (units ( unknown) date) unknown) (unknown) (no (unknown) (unknown) rales, or (units (unkn own) date) rhonchi. unknown) (unknown) (no (unknown) (unknown) seizures, (units (unkn own) date) incoordination. unknown) (unknown) (no (unknown) (unknown) substance use (units ( unknown) date) type: does not unknown) use (unknown) (no (unknown) (unknown) swelling onset (units (unknown) date) approximately 3 unknown) days ago. He is not recall any acute injuries to (unknown) (no (unknown) (unknown) the foot. States (units (unknown) date) that it became unknown) red over the last few days and has begun (unknown) (no (unknown) (unknown) tonsillar (units (unkn own) date) hypertrophy or unknown) exudate. Airway patent. Result panel 3 (unknown) (no (unknown) (unknown) (no value) (units (unk nown) date) unknown) (unknown) (no (unknown) (unknown) (Zofran) (units (unkno wn) date) vomiting #12 tabs unknown) (unknown) (no (unknown) (unknown) 1 tab PO Q6H PRN (units (unknown) date) (Reason: pain) unknown) Qty: 12 0RF (unknown) (no (unknown) (unknown) 06/21/22 (units (unkno wn) date) unknown) (unknown) (no (unknown) (unknown) 100 mg PO BID (units ( unknown) date) Qty: 20 0RF unknown) (unknown) (no (unknown) (unknown) 12 point review (units (unknown) date) of systems is unknown) negative except for those stated above (unknown) (no (unknown) (unknown) 16:55 (units (unkno wn) date) unknown) (unknown) (no (unknown) (unknown) 20 mg PO QID PRN (units (unknown) date) (Reason: unknown) abdominal discomfort) Qty: 15 0RF (unknown) (no (unknown) (unknown) 4 mg PO Q6H PRN (units (unknown) date) (Reason: nausea unknown) and vomiting) Qty: 12 0RF (unknown) (no (unknown) (unknown) 5 mg PO DAILY (units ( unknown) date) Qty: 30 0RF unknown) (unknown) (no (unknown) (unknown) 5 mg PO Q4H PRN (units (unknown) date) (Reason: post unknown) operative pain) Qty: 30 0RF (unknown) (no (unknown) (unknown) 500 mg PO QID 7 (units (unknown) date) Days Qty: 28 0RF unknown) (unknown) (no (unknown) (unknown) 52-year-old male (units (unknown) date) presents to the unknown) emergency department due to right foot erythema (unknown) (no (unknown) (unknown) : [id number] (units (u nknown) date) unknown) (unknown) (no (unknown) (unknown) Activity (units (unkno wn) date) Restrictions/Oliver unknown) tional Instructions: (unknown) (no (unknown) (unknown) Acute foot pain, (units (unknown) date) Cellulitis unknown) (unknown) (no (unknown) (unknown) Age/Sex: 52 / M (units (unknown) date) unknown) (unknown) (no (unknown) (unknown) Allergies (units (unkn own) date) unknown) (unknown) (no (unknown) (unknown) Allergy/AdvReac (units (unknown) date) Type Severity unknown) Reaction Status Date / Time (unknown) (no (unknown) (unknown) BACK: Nontender (units (unknown) date) without deformity unknown) or crepitance. No flank tenderness. (unknown) (no (unknown) (unknown) Blood Pressure (units (unknown) date) 153/85 H 06/21/22 unknown) 16:55 (unknown) (no (unknown) (unknown) Blood Pressure (units (unknown) date) 153/85 H unknown) (unknown) (no (unknown) (unknown) CARDIOVASCULAR: (units (unknown) date) Denies chest unknown) pain, palpitations, orthopnea, edema, (unknown) (no (unknown) (unknown) CARDIOVASCULAR: (units (unknown) date) Regular rate and unknown) rhythm without murmurs, gallops, or rubs. (unknown) (no (unknown) (unknown) Chief Complaint: (units (unknown) date) Extremity Injury, unknown) Lower (unknown) (no (unknown) (unknown) Clinical (units (unkno wn) date) Impression: unknown) (unknown) (no (unknown) (unknown) Course (units (unkno wn) date) unknown) (unknown) (no (unknown) (unknown) : 1970 (units (unknown) date) Acct:[id number] unknown) (unknown) (no (unknown) (unknown) Date of Service: (units (unknown) date) 06/21/22 unknown) (unknown) (no (unknown) (unknown) Departure (units (unkn own) date) unknown) (unknown) (no (unknown) (unknown) Discharge Plan (units (unknown) date) unknown) (unknown) (no (unknown) (unknown) ENT: Nose (units (unkn own) date) without bleeding, unknown) purulent drainage. Throat without erythema, (unknown) (no (unknown) (unknown) ER Physician: (units ( unknown) date) Suleiman Rodriguez P.A-C unknown) (unknown) (no (unknown) (unknown) EXTREMITIES: No (units (unknown) date) edema or joint unknown) tenderness. (unknown) (no (unknown) (unknown) EYES: Pupils (units (u nknown) date) equal round and unknown) reactive. Extraocular motions intact. No scleral (unknown) (no (unknown) (unknown) Emergency Report (units (unknown) date) unknown) (unknown) (no (unknown) (unknown) Exam Narrative: (units (unknown) date) unknown) (unknown) (no (unknown) (unknown) Exam (units (unkno wn) date) unknown) (unknown) (no (unknown) (unknown) Family History (units (unknown) date) (Reviewed unknown) 04/28/20 @ 15:19 by Luba Bobby MD) (unknown) (no (unknown) (unknown) Father (units (unkno wn) date) Hypertension unknown) (unknown) (no (unknown) (unknown) GASTROINTESTINAL (units (unknown) date) : Abdomen soft, unknown) non-tender, nondistended. (unknown) (no (unknown) (unknown) GASTROINTESTINAL (units (unknown) date) : Denies nausea, unknown) vomiting, abdominal pain, diarrhea, (unknown) (no (unknown) (unknown) GENERAL: Denies (units (unknown) date) chills, fatigue, unknown) malaise, fever, sweats. (unknown) (no (unknown) (unknown) GENERAL: (units (unkno wn) date) Well-developed unknown) patient, in mild distress. (unknown) (no (unknown) (unknown) : Denies (units (unk nown) date) dysuria, unknown) frequency, incontinence, hematuria, urinary retention. (unknown) (no (unknown) (unknown) Gallstones (units (unk nown) date) unknown) (unknown) (no (unknown) (unknown) General (units (unkno wn) date) unknown) (unknown) (no (unknown) (unknown) HEAD: (units (unkno wn) date) Atraumatic. unknown) Normocephalic. (unknown) (no (unknown) (unknown) HEENT: Denies (units ( unknown) date) sinus pain, ear unknown) pain, sore throat, difficulty swallowing, (unknown) (no (unknown) (unknown) HPI - Extremity (units (unknown) date) Injury (Lower) unknown) (unknown) (no (unknown) (unknown) HPI Narrative: (units (unknown) date) unknown) (unknown) (no (unknown) (unknown) HTN (units (unkno wn) date) (hypertension) unknown) (unknown) (no (unknown) (unknown) History of (units (unk nown) date) Present Illness unknown) (unknown) (no (unknown) (unknown) History of (units (unk nown) date) repair of ACL unknown) (unknown) (no (unknown) (unknown) Hx of knee (units (unk nown) date) surgery unknown) (unknown) (no (unknown) (unknown) Hx of vasectomy (units (unknown) date) unknown) (unknown) (no (unknown) (unknown) I hope you feel (units (unknown) date) better soon. unknown) (unknown) (no (unknown) (unknown) Initial Vital (units ( unknown) date) Signs unknown) (unknown) (no (unknown) (unknown) Initial Vital (units ( unknown) date) Signs: unknown) (unknown) (no (unknown) (unknown) Instructions: DI (units (unknown) date) for Cellulitis -- unknown) Adult, DI for Foot Sprain (unknown) (no (unknown) (unknown) [facility] (units (unknown) date) [address] [place] [address] Street unknown) [place] [address] (unknown) (no (unknown) (unknown) MDM - Extremity (units (unknown) date) Injury (Lower) unknown) (unknown) (no (unknown) (unknown) MDM Narrative (units ( unknown) date) unknown) (unknown) (no (unknown) (unknown) MUSCULOSKELETAL: (units (unknown) date) denies weakness, unknown) joint pain, or bony pain (unknown) (no (unknown) (unknown) Medical History (units (unknown) date) (Updated 06/21/22 unknown) @ 19:36 by Suleiman oRdriguez PA-C) (unknown) (no (unknown) (unknown) Medical decision (units (unknown) date) making narrative: unknown) (unknown) (no (unknown) (unknown) Medication (units (unk nown) date) Instructions unknown) Recorded (unknown) (no (unknown) (unknown) Mode of arrival: (units (unknown) date) Ambulatory unknown) (unknown) (no (unknown) (unknown) Mother Breast (units ( unknown) date) cancer unknown) (unknown) (no (unknown) (unknown) NECK: Trachea (units ( unknown) date) midline. Non unknown) tender (unknown) (no (unknown) (unknown) NEURO: AOx3. (units (u nknown) date) unknown) (unknown) (no (unknown) (unknown) NEUROLOGIC: (units (un known) date) Denies weakness, unknown) headache, numbness, change in speech, confusion, (unknown) (no (unknown) (unknown) Narrative (units (unkn own) date) unknown) (unknown) (no (unknown) (unknown) Narrative: (units (unk nown) date) unknown) (unknown) (no (unknown) (unknown) New (units (unkno wn) date) unknown) (unknown) (no (unknown) (unknown) No Action (units (unkn own) date) unknown) (unknown) (no (unknown) (unknown) No Known Drug (units ( unknown) date) Allergies Allergy unknown) Verified 04/28/20 09:47 (unknown) (no (unknown) (unknown) Oxygen Delivery (units (unknown) date) Method 06/21/22 unknown) 16:55 (unknown) (no (unknown) (unknown) Oxygen Delivery (units (unknown) date) Method Room Air unknown) (unknown) (no (unknown) (unknown) PSYCHIATRIC: No (units (unknown) date) concerning unknown) psychosocial issues. (unknown) (no (unknown) (unknown) Patient (units (unkno wn) date) Disposition: Home unknown) (unknown) (no (unknown) (unknown) Patient History (units (unknown) date) unknown) (unknown) (no (unknown) (unknown) Patient denies (units (unknown) date) medical problems unknown) (unknown) (no (unknown) (unknown) Patient's vitals (units (unknown) date) reassuring and unknown) comfortable discharging the patient for (unknown) (no (unknown) (unknown) Patient: Michelle (units (unknown) date) Owen Leonard MR# unknown) (unknown) (no (unknown) (unknown) Prescriptions: (units (unknown) date) unknown) (unknown) (no (unknown) (unknown) Previous Rx's (units ( unknown) date) unknown) (unknown) (no (unknown) (unknown) Pulse Oximetry (units (unknown) date) 96 06/21/22 16:55 unknown) (unknown) (no (unknown) (unknown) Pulse Oximetry (units (unknown) date) 96 unknown) (unknown) (no (unknown) (unknown) Pulse Rate 86 (units ( unknown) date) 06/21/22 16:55 unknown) (unknown) (no (unknown) (unknown) Pulse Rate 86 (units ( unknown) date) unknown) (unknown) (no (unknown) (unknown) RESPIRATORY: (units (un known) date) Clear to unknown) auscultation. Breath sounds equal bilaterally. No wheezes, (unknown) (no (unknown) (unknown) RESPIRATORY: (units (u nknown) date) Denies dyspnea, unknown) cough, wheezing, hemoptysis, sputum. (unknown) (no (unknown) (unknown) Related Data (units (u nknown) date) unknown) (unknown) (no (unknown) (unknown) Respiratory Rate (units (unknown) date) 20 06/21/22 16:55 unknown) (unknown) (no (unknown) (unknown) Respiratory Rate (units (unknown) date) 20 unknown) (unknown) (no (unknown) (unknown) Review of (units (unkn own) date) Systems unknown) (unknown) (no (unknown) (unknown) SKIN: Cool area (units (unknown) date) of erythema to unknown) the medial aspect of the foot. No areas of (unknown) (no (unknown) (unknown) SKIN: Foot rash (units (unknown) date) unknown) (unknown) (no (unknown) (unknown) Signed By: (units (unk nown) date) unknown) (unknown) (no (unknown) (unknown) Smoking Status: (units (unknown) date) Never smoker unknown) (unknown) (no (unknown) (unknown) Social History (units (unknown) date) (Reviewed unknown) 04/28/20 @ 15:19 by Luba Bobby MD) (unknown) (no (unknown) (unknown) Source: patient (units (unknown) date) unknown) (unknown) (no (unknown) (unknown) Stand Alone (units (un known) date) Forms: Work unknown) Release Note (unknown) (no (unknown) (unknown) Stated (units (unkno wn) date) Complaint: rt unknown) foot pain, swelling a lot (unknown) (no (unknown) (unknown) Substance Use (units ( unknown) date) Type: does not unknown) use (unknown) (no (unknown) (unknown) Surgical History (units (unknown) date) (Reviewed unknown) 04/28/20 @ 15:19 by Luba Bobby MD) (unknown) (no (unknown) (unknown) Temperature 97.1 (units (unknown) date) F L 06/21/22 unknown) 16:55 (unknown) (no (unknown) (unknown) Temperature 97.1 (units (unknown) date) F L unknown) (unknown) (no (unknown) (unknown) Thank you for (units ( unknown) date) coming to the unknown) [facility] Emergency Department today. We will (unknown) (no (unknown) (unknown) Then the redness (units (unknown) date) developing became unknown) concerned. Patient is nondiabetic is a (unknown) (no (unknown) (unknown) This is a (units (unkn own) date) 52-year-old male unknown) presenting to the emergency department due to right (unknown) (no (unknown) (unknown) Time Seen by (units (u nknown) date) Provider: unknown) 06/21/22 18:14 (unknown) (no (unknown) (unknown) Vital Signs - 8 (units (unknown) date) hr unknown) (unknown) (no (unknown) (unknown) Vital Signs (units (un known) date) unknown) (unknown) (no (unknown) (unknown) Vital signs: (units (u nknown) date) unknown) (unknown) (no (unknown) (unknown) alcohol intake (units (unknown) date) frequency: a few unknown) times a week (unknown) (no (unknown) (unknown) alcohol intake: (units (unknown) date) current unknown) (unknown) (no (unknown) (unknown) amlodipine 5 mg (units (unknown) date) tablet 5 mg PO unknown) DAILY #30 tabs 03/27/20 (unknown) (no (unknown) (unknown) amlodipine 5 mg (units (unknown) date) tablet unknown) (unknown) (no (unknown) (unknown) being diabetic. (units (unknown) date) unknown) (unknown) (no (unknown) (unknown) cephalexin 500 (units (unknown) date) mg capsule 500 mg unknown) PO QID 7 days #28 caps 06/21/22 (unknown) (no (unknown) (unknown) cephalexin 500 (units (unknown) date) mg capsule unknown) (unknown) (no (unknown) (unknown) constipation, (units ( unknown) date) melena. unknown) (unknown) (no (unknown) (unknown) dicyclomine 20 (units (unknown) date) mg tablet 20 mg unknown) PO QID PRN abdominal 03/27/20 (unknown) (no (unknown) (unknown) dicyclomine 20 (units (unknown) date) mg tablet unknown) (unknown) (no (unknown) (unknown) discomfort #15 (units (unknown) date) tabs unknown) (unknown) (no (unknown) (unknown) dizziness. (units (unk nown) date) unknown) (unknown) (no (unknown) (unknown) docusate sodium (units (unknown) date) 100 mg capsule unknown) 100 mg PO BID prevent constipation 04/13/20 (unknown) (no (unknown) (unknown) docusate sodium (units (unknown) date) 100 mg capsule unknown) (unknown) (no (unknown) (unknown) erythematous. (units ( unknown) date) Will treat unknown) empirically with oral antibiotics as well as (unknown) (no (unknown) (unknown) expressing (units (unk nown) date) concern. Denies unknown) any fevers, nausea, vomiting, or chills. Denies (unknown) (no (unknown) (unknown) fluctuance. (units (un known) date) Diffuse mild unknown) tenderness to palpation. (unknown) (no (unknown) (unknown) foot did appear (units (unknown) date) red but was very unknown) close to the touch and only very mildly (unknown) (no (unknown) (unknown) from pain meds (units (unknown) date) #20 caps unknown) (unknown) (no (unknown) (unknown) household (units (unkn own) date) members: spouse unknown) (unknown) (no (unknown) (unknown) hydrocodone 5 (units ( unknown) date) mg-acetaminophen unknown) 325 1 tab PO Q6H PRN pain #12 tabs 03/27/20 (unknown) (no (unknown) (unknown) hydrocodone-acet (units (unknown) date) aminophen [Lindon] unknown) 5-325 mg tablet (unknown) (no (unknown) (unknown) icterus. No (units (un known) date) injection or unknown) drainage. (unknown) (no (unknown) (unknown) instructions to (units (unknown) date) treat with ice, unknown) warm compresses, elevation as well as NSAIDs. (unknown) (no (unknown) (unknown) is a bad sprain (units (unknown) date) and more muscular unknown) in nature. Please use also use ibuprofen as (unknown) (no (unknown) (unknown) lower extremity (units (unknown) date) swelling and mild unknown) erythema. Unclear whether cellulitic as the (unknown) (no (unknown) (unknown) marital status: (units (unknown) date) unknown) (unknown) (no (unknown) (unknown) mg tablet (units (unkn own) date) (Lindon) unknown) (unknown) (no (unknown) (unknown) needed for the (units (unknown) date) pain. unknown) (unknown) (no (unknown) (unknown) occupational (units (u nknown) date) status: employed unknown) (unknown) (no (unknown) (unknown) ondansetron HCl (units (unknown) date) 4 mg tablet 4 mg unknown) PO Q6H PRN nausea and 03/27/20 (unknown) (no (unknown) (unknown) ondansetron HCl (units (unknown) date) [Zofran] 4 mg unknown) tablet (unknown) (no (unknown) (unknown) outpatient (units (unk nown) date) therapy. unknown) (unknown) (no (unknown) (unknown) oxycodone 5 mg (units (unknown) date) tablet 5 mg PO unknown) Q4H PRN post operative 04/13/20 (unknown) (no (unknown) (unknown) oxycodone 5 mg (units (unknown) date) tablet unknown) (unknown) (no (unknown) (unknown) pain #30 tabs (units ( unknown) date) unknown) (unknown) (no (unknown) (unknown) rales, or (units (unkn own) date) rhonchi. unknown) (unknown) (no (unknown) (unknown) seizures, (units (unkn own) date) incoordination. unknown) (unknown) (no (unknown) (unknown) substance use (units ( unknown) date) type: does not unknown) use (unknown) (no (unknown) (unknown) swelling onset (units (unknown) date) approximately 3 unknown) days ago. He is not recall any acute injuries to (unknown) (no (unknown) (unknown) the foot. States (units (unknown) date) that it became unknown) red over the last few days and has begun (unknown) (no (unknown) (unknown) tonsillar (units (unkn own) date) hypertrophy or unknown) exudate. Airway patent. (unknown) (no (unknown) (unknown) treat (units (unkno wn) date) empirically for unknown) cellulitis with antibiotics prescribed. I also recommend (unknown) (no (unknown) (unknown) you elevate the (units (unknown) date) foot as well as unknown) uses hot warm compresses in the event that this Result panel 4 (unknown) (no (unknown) (unknown) (no value) (units (unk nown) date) unknown) (unknown) (no (unknown) (unknown) (Zofran) (units (unkno wn) date) vomiting #12 tabs unknown) (unknown) (no (unknown) (unknown) 1 tab PO Q6H PRN (units (unknown) date) (Reason: pain) unknown) Qty: 12 0RF (unknown) (no (unknown) (unknown) 06/21/22 (units (unkno wn) date) unknown) (unknown) (no (unknown) (unknown) 100 mg PO BID (units ( unknown) date) Qty: 20 0RF unknown) (unknown) (no (unknown) (unknown) 12 point review (units (unknown) date) of systems is unknown) negative except for those stated above (unknown) (no (unknown) (unknown) 16:55 (units (unkno wn) date) unknown) (unknown) (no (unknown) (unknown) 20 mg PO QID PRN (units (unknown) date) (Reason: unknown) abdominal discomfort) Qty: 15 0RF (unknown) (no (unknown) (unknown) 4 mg PO Q6H PRN (units (unknown) date) (Reason: nausea unknown) and vomiting) Qty: 12 0RF (unknown) (no (unknown) (unknown) 5 mg PO DAILY (units ( unknown) date) Qty: 30 0RF unknown) (unknown) (no (unknown) (unknown) 5 mg PO Q4H PRN (units (unknown) date) (Reason: post unknown) operative pain) Qty: 30 0RF (unknown) (no (unknown) (unknown) 500 mg PO QID 7 (units (unknown) date) Days Qty: 28 0RF unknown) (unknown) (no (unknown) (unknown) 52-year-old male (units (unknown) date) presents to the unknown) emergency department due to right foot erythema (unknown) (no (unknown) (unknown) : [id number] (units (u nknown) date) unknown) (unknown) (no (unknown) (unknown) Activity (units (unkno wn) date) Restrictions/Oliver unknown) tional Instructions: (unknown) (no (unknown) (unknown) Acute foot pain, (units (unknown) date) Cellulitis unknown) (unknown) (no (unknown) (unknown) Age/Sex: 52 / M (units (unknown) date) unknown) (unknown) (no (unknown) (unknown) Allergies (units (unkn own) date) unknown) (unknown) (no (unknown) (unknown) Allergy/AdvReac (units (unknown) date) Type Severity unknown) Reaction Status Date / Time (unknown) (no (unknown) (unknown) BACK: Nontender (units (unknown) date) without deformity unknown) or crepitance. No flank tenderness. (unknown) (no (unknown) (unknown) Blood Pressure (units (unknown) date) 153/85 H 06/21/22 unknown) 16:55 (unknown) (no (unknown) (unknown) Blood Pressure (units (unknown) date) 153/85 H unknown) (unknown) (no (unknown) (unknown) CARDIOVASCULAR: (units (unknown) date) Denies chest unknown) pain, palpitations, orthopnea, edema, (unknown) (no (unknown) (unknown) CARDIOVASCULAR: (units (unknown) date) Regular rate and unknown) rhythm without murmurs, gallops, or rubs. (unknown) (no (unknown) (unknown) Chief Complaint: (units (unknown) date) Extremity Injury, unknown) Lower (unknown) (no (unknown) (unknown) Clinical (units (unkno wn) date) Impression: unknown) (unknown) (no (unknown) (unknown) Course (units (unkno wn) date) unknown) (unknown) (no (unknown) (unknown) : 1970 (units (unknown) date) Acct:[id number] unknown) (unknown) (no (unknown) (unknown) Date of Service: (units (unknown) date) 06/21/22 unknown) (unknown) (no (unknown) (unknown) Departure (units (unkn own) date) unknown) (unknown) (no (unknown) (unknown) Discharge Plan (units (unknown) date) unknown) (unknown) (no (unknown) (unknown) ENT: Nose (units (unkn own) date) without bleeding, unknown) purulent drainage. Throat without erythema, (unknown) (no (unknown) (unknown) ER Physician: (units ( unknown) date) Suleiman Rodriguez P.A-C unknown) (unknown) (no (unknown) (unknown) EXTREMITIES: No (units (unknown) date) edema or joint unknown) tenderness. (unknown) (no (unknown) (unknown) EYES: Pupils (units (u nknown) date) equal round and unknown) reactive. Extraocular motions intact. No scleral (unknown) (no (unknown) (unknown) Emergency Report (units (unknown) date) unknown) (unknown) (no (unknown) (unknown) Exam Narrative: (units (unknown) date) unknown) (unknown) (no (unknown) (unknown) Exam (units (unkno wn) date) unknown) (unknown) (no (unknown) (unknown) Family History (units (unknown) date) (Reviewed unknown) 04/28/20 @ 15:19 by Luba Bobby MD) (unknown) (no (unknown) (unknown) Father (units (o wn) date) Hypertension unknown) (unknown) (no (unknown) (unknown) GASTROINTESTINAL (units (unknown) date) : Abdomen soft, unknown) non-tender, nondistended. (unknown) (no (unknown) (unknown) GASTROINTESTINAL (units (unknown) date) : Denies nausea, unknown) vomiting, abdominal pain, diarrhea, (unknown) (no (unknown) (unknown) GENERAL: Denies (units (unknown) date) chills, fatigue, unknown) malaise, fever, sweats. (unknown) (no (unknown) (unknown) GENERAL: (units (o wn) date) Well-developed unknown) patient, in mild distress. (unknown) (no (unknown) (unknown) : Denies (units (unk n) date) dysuria, unknown) frequency, incontinence, hematuria, urinary retention. (unknown) (no (unknown) (unknown) Gallstones (units (unk n) date) unknown) (unknown) (no (unknown) (unknown) General (units (o wn) date) unknown) (unknown) (no (unknown) (unknown) HEAD: (units (o wn) date) Atraumatic. unknown) Normocephalic. (unknown) (no (unknown) (unknown) HEENT: Denies (units ( unknown) date) sinus pain, ear unknown) pain, sore throat, difficulty swallowing, (unknown) (no (unknown) (unknown) HPI - Extremity (units (unknown) date) Injury (Lower) unknown) (unknown) (no (unknown) (unknown) HPI Narrative: (units (unknown) date) unknown) (unknown) (no (unknown) (unknown) HTN (units (o wn) date) (hypertension) unknown) (unknown) (no (unknown) (unknown) History of (units (unk n) date) Present Illness unknown) (unknown) (no (unknown) (unknown) History of (units (unk n) date) repair of ACL unknown) (unknown) (no (unknown) (unknown) Hx of knee (units (k ) date) surgery unknown) (unknown) (no (unknown) (unknown) Hx of vasectomy (units (unknown) date) unknown) (unknown) (no (unknown) (unknown) I hope you feel (units (unknown) date) better soon. unknown) (unknown) (no (unknown) (unknown) Initial Vital (units ( unknown) date) Signs unknown) (unknown) (no (unknown) (unknown) Initial Vital (units ( unknown) date) Signs: unknown) (unknown) (no (unknown) (unknown) Instructions: DI (units (unknown) date) for Cellulitis -- unknown) Adult, DI for Foot Sprain (unknown) (no (unknown) (unknown) [facility] (units (unknown) date) [address] unknown) [place] [address] (unknown) (no (unknown) (unknown) MDM - Extremity (units (unknown) date) Injury (Lower) unknown) (unknown) (no (unknown) (unknown) MDM Narrative (units ( unknown) date) unknown) (unknown) (no (unknown) (unknown) MUSCULOSKELETAL: (units (unknown) date) denies weakness, unknown) joint pain, or bony pain (unknown) (no (unknown) (unknown) Medical History (units (unknown) date) (Updated 06/21/22 unknown) @ 19:36 by Suleiman Rodriguez PA-C) (unknown) (no (unknown) (unknown) Medical decision (units (unknown) date) making narrative: unknown) (unknown) (no (unknown) (unknown) Medication (units (unk nown) date) Instructions unknown) Recorded (unknown) (no (unknown) (unknown) Mode of arrival: (units (unknown) date) Ambulatory unknown) (unknown) (no (unknown) (unknown) Mother Breast (units ( unknown) date) cancer unknown) (unknown) (no (unknown) (unknown) NECK: Trachea (units ( unknown) date) midline. Non unknown) tender (unknown) (no (unknown) (unknown) NEURO: AOx3. (units (u nknown) date) unknown) (unknown) (no (unknown) (unknown) NEUROLOGIC: (units (un known) date) Denies weakness, unknown) headache, numbness, change in speech, confusion, (unknown) (no (unknown) (unknown) Narrative (units (unkn own) date) unknown) (unknown) (no (unknown) (unknown) Narrative: (units (unk nown) date) unknown) (unknown) (no (unknown) (unknown) New (units (unkno wn) date) unknown) (unknown) (no (unknown) (unknown) No Action (units (unkn own) date) unknown) (unknown) (no (unknown) (unknown) No Known Drug (units ( unknown) date) Allergies Allergy unknown) Verified 04/28/20 09:47 (unknown) (no (unknown) (unknown) Oxygen Delivery (units (unknown) date) Method 06/21/22 unknown) 16:55 (unknown) (no (unknown) (unknown) Oxygen Delivery (units (unknown) date) Method Room Air unknown) (unknown) (no (unknown) (unknown) PSYCHIATRIC: No (units (unknown) date) concerning unknown) psychosocial issues. (unknown) (no (unknown) (unknown) Patient (units (unkno wn) date) Disposition: Home unknown) (unknown) (no (unknown) (unknown) Patient History (units (unknown) date) unknown) (unknown) (no (unknown) (unknown) Patient denies (units (unknown) date) medical problems unknown) (unknown) (no (unknown) (unknown) Patient's vitals (units (unknown) date) reassuring and unknown) comfortable discharging the patient for (unknown) (no (unknown) (unknown) Patient: Michelle (units (unknown) date) Owen Leonard MR# unknown) (unknown) (no (unknown) (unknown) Prescriptions: (units (unknown) date) unknown) (unknown) (no (unknown) (unknown) Previous Rx's (units ( unknown) date) unknown) (unknown) (no (unknown) (unknown) Pulse Oximetry (units (unknown) date) 96 06/21/22 16:55 unknown) (unknown) (no (unknown) (unknown) Pulse Oximetry (units (unknown) date) 96 unknown) (unknown) (no (unknown) (unknown) Pulse Rate 86 (units ( unknown) date) 06/21/22 16:55 unknown) (unknown) (no (unknown) (unknown) Pulse Rate 86 (units ( unknown) date) unknown) (unknown) (no (unknown) (unknown) RESPIRATORY: (units (un known) date) Clear to unknown) auscultation. Breath sounds equal bilaterally. No wheezes, (unknown) (no (unknown) (unknown) RESPIRATORY: (units (u nknown) date) Denies dyspnea, unknown) cough, wheezing, hemoptysis, sputum. (unknown) (no (unknown) (unknown) Related Data (units (u nknown) date) unknown) (unknown) (no (unknown) (unknown) Respiratory Rate (units (unknown) date) 20 06/21/22 16:55 unknown) (unknown) (no (unknown) (unknown) Respiratory Rate (units (unknown) date) 20 unknown) (unknown) (no (unknown) (unknown) Review of (units (unkn own) date) Systems unknown) (unknown) (no (unknown) (unknown) SKIN: Cool area (units (unknown) date) of erythema to unknown) the medial aspect of the foot. No areas of (unknown) (no (unknown) (unknown) SKIN: Foot rash (units (unknown) date) unknown) (unknown) (no (unknown) (unknown) Signed By: (units (unk nown) date) unknown) (unknown) (no (unknown) (unknown) Smoking Status: (units (unknown) date) Never smoker unknown) (unknown) (no (unknown) (unknown) Social History (units (unknown) date) (Reviewed unknown) 04/28/20 @ 15:19 by Luba Bobby MD) (unknown) (no (unknown) (unknown) Source: patient (units (unknown) date) unknown) (unknown) (no (unknown) (unknown) Stand Alone (units (un known) date) Forms: Work unknown) Release Note (unknown) (no (unknown) (unknown) Stated (units (unkno wn) date) Complaint: rt unknown) foot pain, swelling a lot (unknown) (no (unknown) (unknown) Substance Use (units ( unknown) date) Type: does not unknown) use (unknown) (no (unknown) (unknown) Surgical History (units (unknown) date) (Reviewed unknown) 04/28/20 @ 15:19 by Luba Bobby MD) (unknown) (no (unknown) (unknown) Temperature 97.1 (units (unknown) date) F L 06/21/22 unknown) 16:55 (unknown) (no (unknown) (unknown) Temperature 97.1 (units (unknown) date) F L unknown) (unknown) (no (unknown) (unknown) Thank you for (units ( unknown) date) coming to the unknown) [facility] Emergency Department today. We will (unknown) (no (unknown) (unknown) Then the redness (units (unknown) date) developing became unknown) concerned. Patient is nondiabetic is a (unknown) (no (unknown) (unknown) This is a (units (unkn own) date) 52-year-old male unknown) presenting to the emergency department due to right (unknown) (no (unknown) (unknown) Time Seen by (units (u nknown) date) Provider: unknown) 06/21/22 18:14 (unknown) (no (unknown) (unknown) Vital Signs - 8 (units (unknown) date) hr unknown) (unknown) (no (unknown) (unknown) Vital Signs (units (un known) date) unknown) (unknown) (no (unknown) (unknown) Vital signs: (units (u nknown) date) unknown) (unknown) (no (unknown) (unknown) alcohol intake (units (unknown) date) frequency: a few unknown) times a week (unknown) (no (unknown) (unknown) alcohol intake: (units (unknown) date) current unknown) (unknown) (no (unknown) (unknown) amlodipine 5 mg (units (unknown) date) tablet 5 mg PO unknown) DAILY #30 tabs 03/27/20 (unknown) (no (unknown) (unknown) amlodipine 5 mg (units (unknown) date) tablet unknown) (unknown) (no (unknown) (unknown) being diabetic. (units (unknown) date) unknown) (unknown) (no (unknown) (unknown) cephalexin 500 (units (unknown) date) mg capsule 500 mg unknown) PO QID 7 days #28 caps 06/21/22 (unknown) (no (unknown) (unknown) cephalexin 500 (units (unknown) date) mg capsule unknown) (unknown) (no (unknown) (unknown) constipation, (units ( unknown) date) melena. unknown) (unknown) (no (unknown) (unknown) dicyclomine 20 (units (unknown) date) mg tablet 20 mg unknown) PO QID PRN abdominal 03/27/20 (unknown) (no (unknown) (unknown) dicyclomine 20 (units (unknown) date) mg tablet unknown) (unknown) (no (unknown) (unknown) discomfort #15 (units (unknown) date) tabs unknown) (unknown) (no (unknown) (unknown) dizziness. (units (unk nown) date) unknown) (unknown) (no (unknown) (unknown) docusate sodium (units (unknown) date) 100 mg capsule unknown) 100 mg PO BID prevent constipation 04/13/20 (unknown) (no (unknown) (unknown) docusate sodium (units (unknown) date) 100 mg capsule unknown) (unknown) (no (unknown) (unknown) erythematous. (units ( unknown) date) Will treat unknown) empirically with oral antibiotics as well as (unknown) (no (unknown) (unknown) expressing (units (unk nown) date) concern. Denies unknown) any fevers, nausea, vomiting, or chills. Denies (unknown) (no (unknown) (unknown) fluctuance. (units (un known) date) Diffuse mild unknown) tenderness to palpation. (unknown) (no (unknown) (unknown) foot did appear (units (unknown) date) red but was very unknown) close to the touch and only very mildly (unknown) (no (unknown) (unknown) from pain meds (units (unknown) date) #20 caps unknown) (unknown) (no (unknown) (unknown) household (units (unkn own) date) members: spouse unknown) (unknown) (no (unknown) (unknown) hydrocodone 5 (units ( unknown) date) mg-acetaminophen unknown) 325 1 tab PO Q6H PRN pain #12 tabs 03/27/20 (unknown) (no (unknown) (unknown) hydrocodone-acet (units (unknown) date) aminophen [Lindon] unknown) 5-325 mg tablet (unknown) (no (unknown) (unknown) icterus. No (units (un known) date) injection or unknown) drainage. (unknown) (no (unknown) (unknown) instructions to (units (unknown) date) treat with ice, unknown) warm compresses, elevation as well as NSAIDs. (unknown) (no (unknown) (unknown) is a bad sprain (units (unknown) date) and more muscular unknown) in nature. Please use also use ibuprofen as (unknown) (no (unknown) (unknown) lower extremity (units (unknown) date) swelling and mild unknown) erythema. Unclear whether cellulitic as the (unknown) (no (unknown) (unknown) marital status: (units (unknown) date) unknown) (unknown) (no (unknown) (unknown) mg tablet (units (unkn own) date) (Lindon) unknown) (unknown) (no (unknown) (unknown) needed for the (units (unknown) date) pain. unknown) (unknown) (no (unknown) (unknown) occupational (units (u nknown) date) status: employed unknown) (unknown) (no (unknown) (unknown) ondansetron HCl (units (unknown) date) 4 mg tablet 4 mg unknown) PO Q6H PRN nausea and 03/27/20 (unknown) (no (unknown) (unknown) ondansetron HCl (units (unknown) date) [Zofran] 4 mg unknown) tablet (unknown) (no (unknown) (unknown) outpatient (units (unk nown) date) therapy. unknown) (unknown) (no (unknown) (unknown) oxycodone 5 mg (units (unknown) date) tablet 5 mg PO unknown) Q4H PRN post operative 04/13/20 (unknown) (no (unknown) (unknown) oxycodone 5 mg (units (unknown) date) tablet unknown) (unknown) (no (unknown) (unknown) pain #30 tabs (units ( unknown) date) unknown) (unknown) (no (unknown) (unknown) rales, or (units (unkn own) date) rhonchi. unknown) (unknown) (no (unknown) (unknown) seizures, (units (unkn own) date) incoordination. unknown) (unknown) (no (unknown) (unknown) substance use (units ( unknown) date) type: does not unknown) use (unknown) (no (unknown) (unknown) swelling onset (units (unknown) date) approximately 3 unknown) days ago. He is not recall any acute injuries to (unknown) (no (unknown) (unknown) the foot. States (units (unknown) date) that it became unknown) red over the last few days and has begun (unknown) (no (unknown) (unknown) tonsillar (units (unkn own) date) hypertrophy or unknown) exudate. Airway patent. (unknown) (no (unknown) (unknown) treat (units (unkno wn) date) empirically for unknown) cellulitis with antibiotics prescribed. I also recommend (unknown) (no (unknown) (unknown) you elevate the (units (unknown) date) foot as well as unknown) uses hot warm compresses in the event that this Result panel 5 (unknown) (no (unknown) (unknown) (no value) (units (unk nown) date) unknown) (unknown) (no (unknown) (unknown) <Electronically (units (unknown) date) signed by Suleiman unknown) P.A-C Michael> (unknown) (no (unknown) (unknown) (Zofran) (units (unkno wn) date) vomiting #12 tabs unknown) (unknown) (no (unknown) (unknown) 1 tab PO Q6H PRN (units (unknown) date) (Reason: pain) unknown) Qty: 12 0RF (unknown) (no (unknown) (unknown) 06/21/221943 (units ( unknown) date) unknown) (unknown) (no (unknown) (unknown) 06/21/22 (units (unkno wn) date) unknown) (unknown) (no (unknown) (unknown) 100 mg PO BID (units ( unknown) date) Qty: 20 0RF unknown) (unknown) (no (unknown) (unknown) 12 point review (units (unknown) date) of systems is unknown) negative except for those stated above (unknown) (no (unknown) (unknown) 16:55 (units (unkno wn) date) unknown) (unknown) (no (unknown) (unknown) 20 mg PO QID PRN (units (unknown) date) (Reason: unknown) abdominal discomfort) Qty: 15 0RF (unknown) (no (unknown) (unknown) 4 mg PO Q6H PRN (units (unknown) date) (Reason: nausea unknown) and vomiting) Qty: 12 0RF (unknown) (no (unknown) (unknown) 5 mg PO DAILY (units ( unknown) date) Qty: 30 0RF unknown) (unknown) (no (unknown) (unknown) 5 mg PO Q4H PRN (units (unknown) date) (Reason: post unknown) operative pain) Qty: 30 0RF (unknown) (no (unknown) (unknown) 500 mg PO QID 7 (units (unknown) date) Days Qty: 28 0RF unknown) (unknown) (no (unknown) (unknown) 52-year-old male (units (unknown) date) presents to the unknown) emergency department due to right foot erythema (unknown) (no (unknown) (unknown) : [id number] (units (u nknown) date) unknown) (unknown) (no (unknown) (unknown) Activity (units (unkno wn) date) Restrictions/Oliver unknown) tional Instructions: (unknown) (no (unknown) (unknown) Acute foot pain, (units (unknown) date) Cellulitis unknown) (unknown) (no (unknown) (unknown) Age/Sex: 52 / M (units (unknown) date) unknown) (unknown) (no (unknown) (unknown) Allergies (units (unkn own) date) unknown) (unknown) (no (unknown) (unknown) Allergy/AdvReac (units (unknown) date) Type Severity unknown) Reaction Status Date / Time (unknown) (no (unknown) (unknown) BACK: Nontender (units (unknown) date) without deformity unknown) or crepitance. No flank tenderness. (unknown) (no (unknown) (unknown) Blood Pressure (units (unknown) date) 153/85 H 06/21/22 unknown) 16:55 (unknown) (no (unknown) (unknown) Blood Pressure (units (unknown) date) 153/85 H unknown) (unknown) (no (unknown) (unknown) CARDIOVASCULAR: (units (unknown) date) Denies chest unknown) pain, palpitations, orthopnea, edema, (unknown) (no (unknown) (unknown) CARDIOVASCULAR: (units (unknown) date) Regular rate and unknown) rhythm without murmurs, gallops, or rubs. (unknown) (no (unknown) (unknown) Chief Complaint: (units (unknown) date) Extremity Injury, unknown) Lower (unknown) (no (unknown) (unknown) Clinical (units (unkno wn) date) Impression: unknown) (unknown) (no (unknown) (unknown) Course (units (unkno wn) date) unknown) (unknown) (no (unknown) (unknown) : 1970 (units (unknown) date) Acct:[id number] unknown) (unknown) (no (unknown) (unknown) Date of Service: (units (unknown) date) 06/21/22 unknown) (unknown) (no (unknown) (unknown) Departure (units (unkn own) date) unknown) (unknown) (no (unknown) (unknown) Discharge Plan (units (unknown) date) unknown) (unknown) (no (unknown) (unknown) ENT: Nose (units (unkn own) date) without bleeding, unknown) purulent drainage. Throat without erythema, (unknown) (no (unknown) (unknown) ER Physician: (units ( unknown) date) Suleiman Rodriguez P.A-C unknown) (unknown) (no (unknown) (unknown) EXTREMITIES: No (units (unknown) date) edema or joint unknown) tenderness. (unknown) (no (unknown) (unknown) EYES: Pupils (units (u nknown) date) equal round and unknown) reactive. Extraocular motions intact. No scleral (unknown) (no (unknown) (unknown) Emergency Report (units (unknown) date) unknown) (unknown) (no (unknown) (unknown) Exam Narrative: (units (unknown) date) unknown) (unknown) (no (unknown) (unknown) Exam (units (unkno wn) date) unknown) (unknown) (no (unknown) (unknown) Family History (units (unknown) date) (Reviewed unknown) 04/28/20 @ 15:19 by Luba Bobby MD) (unknown) (no (unknown) (unknown) Father (units (unkno wn) date) Hypertension unknown) (unknown) (no (unknown) (unknown) GASTROINTESTINAL (units (unknown) date) : Abdomen soft, unknown) non-tender, nondistended. (unknown) (no (unknown) (unknown) GASTROINTESTINAL (units (unknown) date) : Denies nausea, unknown) vomiting, abdominal pain, diarrhea, (unknown) (no (unknown) (unknown) GENERAL: Denies (units (unknown) date) chills, fatigue, unknown) malaise, fever, sweats. (unknown) (no (unknown) (unknown) GENERAL: (units (o wn) date) Well-developed unknown) patient, in mild distress. (unknown) (no (unknown) (unknown) : Denies (units (unk nown) date) dysuria, unknown) frequency, incontinence, hematuria, urinary retention. (unknown) (no (unknown) (unknown) Gallstones (units (unk nown) date) unknown) (unknown) (no (unknown) (unknown) General (units (unkno wn) date) unknown) (unknown) (no (unknown) (unknown) HEAD: (units (o wn) date) Atraumatic. unknown) Normocephalic. (unknown) (no (unknown) (unknown) HEENT: Denies (units ( unknown) date) sinus pain, ear unknown) pain, sore throat, difficulty swallowing, (unknown) (no (unknown) (unknown) HPI - Extremity (units (unknown) date) Injury (Lower) unknown) (unknown) (no (unknown) (unknown) HPI Narrative: (units (unknown) date) unknown) (unknown) (no (unknown) (unknown) HTN (units (o wn) date) (hypertension) unknown) (unknown) (no (unknown) (unknown) History of (units (unk nown) date) Present Illness unknown) (unknown) (no (unknown) (unknown) History of (units (unk nown) date) repair of ACL unknown) (unknown) (no (unknown) (unknown) Hx of knee (units (unk nown) date) surgery unknown) (unknown) (no (unknown) (unknown) Hx of vasectomy (units (unknown) date) unknown) (unknown) (no (unknown) (unknown) I hope you feel (units (unknown) date) better soon. unknown) (unknown) (no (unknown) (unknown) Initial Vital (units ( unknown) date) Signs unknown) (unknown) (no (unknown) (unknown) Initial Vital (units ( unknown) date) Signs: unknown) (unknown) (no (unknown) (unknown) Instructions: DI (units (unknown) date) for Cellulitis -- unknown) Adult, DI for Foot Sprain (unknown) (no (unknown) (unknown) [facility] (units (unknown) date) [address] unknown) [place] [address] (unknown) (no (unknown) (unknown) MDM - Extremity (units (unknown) date) Injury (Lower) unknown) (unknown) (no (unknown) (unknown) MDM Narrative (units ( unknown) date) unknown) (unknown) (no (unknown) (unknown) MUSCULOSKELETAL: (units (unknown) date) denies weakness, unknown) joint pain, or bony pain (unknown) (no (unknown) (unknown) Medical History (units (unknown) date) (Updated 06/21/22 unknown) @ 19:36 by Suleiman Rodriguez PA-C) (unknown) (no (unknown) (unknown) Medical decision (units (unknown) date) making narrative: unknown) (unknown) (no (unknown) (unknown) Medication (units (unk nown) date) Instructions unknown) Recorded (unknown) (no (unknown) (unknown) Mode of arrival: (units (unknown) date) Ambulatory unknown) (unknown) (no (unknown) (unknown) Mother Breast (units ( unknown) date) cancer unknown) (unknown) (no (unknown) (unknown) NECK: Trachea (units ( unknown) date) midline. Non unknown) tender (unknown) (no (unknown) (unknown) NEURO: AOx3. (units (u nknown) date) unknown) (unknown) (no (unknown) (unknown) NEUROLOGIC: (units (un known) date) Denies weakness, unknown) headache, numbness, change in speech, confusion, (unknown) (no (unknown) (unknown) Narrative (units (unkn own) date) unknown) (unknown) (no (unknown) (unknown) Narrative: (units (unk nown) date) unknown) (unknown) (no (unknown) (unknown) New (units (unkno wn) date) unknown) (unknown) (no (unknown) (unknown) No Action (units (unkn own) date) unknown) (unknown) (no (unknown) (unknown) No Known Drug (units ( unknown) date) Allergies Allergy unknown) Verified 04/28/20 09:47 (unknown) (no (unknown) (unknown) Oxygen Delivery (units (unknown) date) Method 06/21/22 unknown) 16:55 (unknown) (no (unknown) (unknown) Oxygen Delivery (units (unknown) date) Method Room Air unknown) (unknown) (no (unknown) (unknown) PSYCHIATRIC: No (units (unknown) date) concerning unknown) psychosocial issues. (unknown) (no (unknown) (unknown) Patient (units (unkno wn) date) Disposition: Home unknown) (unknown) (no (unknown) (unknown) Patient History (units (unknown) date) unknown) (unknown) (no (unknown) (unknown) Patient denies (units (unknown) date) medical problems unknown) (unknown) (no (unknown) (unknown) Patient's vitals (units (unknown) date) reassuring and unknown) comfortable discharging the patient for (unknown) (no (unknown) (unknown) Patient: Michelle (units (unknown) date) Owen Leonard MR# unknown) (unknown) (no (unknown) (unknown) Prescriptions: (units (unknown) date) unknown) (unknown) (no (unknown) (unknown) Previous Rx's (units ( unknown) date) unknown) (unknown) (no (unknown) (unknown) Pulse Oximetry (units (unknown) date) 96 06/21/22 16:55 unknown) (unknown) (no (unknown) (unknown) Pulse Oximetry (units (unknown) date) 96 unknown) (unknown) (no (unknown) (unknown) Pulse Rate 86 (units ( unknown) date) 06/21/22 16:55 unknown) (unknown) (no (unknown) (unknown) Pulse Rate 86 (units ( unknown) date) unknown) (unknown) (no (unknown) (unknown) RESPIRATORY: (units (un known) date) Clear to unknown) auscultation. Breath sounds equal bilaterally. No wheezes, (unknown) (no (unknown) (unknown) RESPIRATORY: (units (u nknown) date) Denies dyspnea, unknown) cough, wheezing, hemoptysis, sputum. (unknown) (no (unknown) (unknown) Related Data (units (u nknown) date) unknown) (unknown) (no (unknown) (unknown) Respiratory Rate (units (unknown) date) 20 06/21/22 16:55 unknown) (unknown) (no (unknown) (unknown) Respiratory Rate (units (unknown) date) 20 unknown) (unknown) (no (unknown) (unknown) Review of (units (unkn own) date) Systems unknown) (unknown) (no (unknown) (unknown) SKIN: Cool area (units (unknown) date) of erythema to unknown) the medial aspect of the foot. No areas of (unknown) (no (unknown) (unknown) SKIN: Foot rash (units (unknown) date) unknown) (unknown) (no (unknown) (unknown) Signed By: (units (unk nown) date) unknown) (unknown) (no (unknown) (unknown) Smoking Status: (units (unknown) date) Never smoker unknown) (unknown) (no (unknown) (unknown) Social History (units (unknown) date) (Reviewed unknown) 04/28/20 @ 15:19 by Luba Bobby MD) (unknown) (no (unknown) (unknown) Source: patient (units (unknown) date) unknown) (unknown) (no (unknown) (unknown) Stand Alone (units (un known) date) Forms: Work unknown) Release Note (unknown) (no (unknown) (unknown) Stated (units (unkno wn) date) Complaint: rt unknown) foot pain, swelling a lot (unknown) (no (unknown) (unknown) Substance Use (units ( unknown) date) Type: does not unknown) use (unknown) (no (unknown) (unknown) Surgical History (units (unknown) date) (Reviewed unknown) 04/28/20 @ 15:19 by Luba Bobby MD) (unknown) (no (unknown) (unknown) Temperature 97.1 (units (unknown) date) F L 06/21/22 unknown) 16:55 (unknown) (no (unknown) (unknown) Temperature 97.1 (units (unknown) date) F L unknown) (unknown) (no (unknown) (unknown) Thank you for (units ( unknown) date) coming to the [facility] Emergency Department today. We will (unknown) (no (unknown) (unknown) Then the redness (units (unknown) date) developing became unknown) concerned. Patient is nondiabetic is a (unknown) (no (unknown) (unknown) This is a (units (unkn own) date) 52-year-old male unknown) presenting to the emergency department due to right (unknown) (no (unknown) (unknown) Time Seen by (units (u nknown) date) Provider: unknown) 06/21/22 18:14 (unknown) (no (unknown) (unknown) Vital Signs - 8 (units (unknown) date) hr unknown) (unknown) (no (unknown) (unknown) Vital Signs (units (un known) date) unknown) (unknown) (no (unknown) (unknown) Vital signs: (units (u nknown) date) unknown) (unknown) (no (unknown) (unknown) alcohol intake (units (unknown) date) frequency: a few unknown) times a week (unknown) (no (unknown) (unknown) alcohol intake: (units (unknown) date) current unknown) (unknown) (no (unknown) (unknown) amlodipine 5 mg (units (unknown) date) tablet 5 mg PO unknown) DAILY #30 tabs 03/27/20 (unknown) (no (unknown) (unknown) amlodipine 5 mg (units (unknown) date) tablet unknown) (unknown) (no (unknown) (unknown) being diabetic. (units (unknown) date) unknown) (unknown) (no (unknown) (unknown) cephalexin 500 (units (unknown) date) mg capsule 500 mg unknown) PO QID 7 days #28 caps 06/21/22 (unknown) (no (unknown) (unknown) cephalexin 500 (units (unknown) date) mg capsule unknown) (unknown) (no (unknown) (unknown) constipation, (units ( unknown) date) melena. unknown) (unknown) (no (unknown) (unknown) dicyclomine 20 (units (unknown) date) mg tablet 20 mg unknown) PO QID PRN abdominal 03/27/20 (unknown) (no (unknown) (unknown) dicyclomine 20 (units (unknown) date) mg tablet unknown) (unknown) (no (unknown) (unknown) discomfort #15 (units (unknown) date) tabs unknown) (unknown) (no (unknown) (unknown) dizziness. (units (unk nown) date) unknown) (unknown) (no (unknown) (unknown) docusate sodium (units (unknown) date) 100 mg capsule unknown) 100 mg PO BID prevent constipation 04/13/20 (unknown) (no (unknown) (unknown) docusate sodium (units (unknown) date) 100 mg capsule unknown) (unknown) (no (unknown) (unknown) erythematous. (units ( unknown) date) Will treat unknown) empirically with oral antibiotics as well as (unknown) (no (unknown) (unknown) expressing (units (unk nown) date) concern. Denies unknown) any fevers, nausea, vomiting, or chills. Denies (unknown) (no (unknown) (unknown) fluctuance. (units (un known) date) Diffuse mild unknown) tenderness to palpation. (unknown) (no (unknown) (unknown) foot did appear (units (unknown) date) red but was very unknown) close to the touch and only very mildly (unknown) (no (unknown) (unknown) from pain meds (units (unknown) date) #20 caps unknown) (unknown) (no (unknown) (unknown) household (units (unkn own) date) members: spouse unknown) (unknown) (no (unknown) (unknown) hydrocodone 5 (units ( unknown) date) mg-acetaminophen unknown) 325 1 tab PO Q6H PRN pain #12 tabs 03/27/20 (unknown) (no (unknown) (unknown) hydrocodone-acet (units (unknown) date) aminophen [Lindon] unknown) 5-325 mg tablet (unknown) (no (unknown) (unknown) icterus. No (units (un known) date) injection or unknown) drainage. (unknown) (no (unknown) (unknown) instructions to (units (unknown) date) treat with ice, unknown) warm compresses, elevation as well as NSAIDs. (unknown) (no (unknown) (unknown) is a bad sprain (units (unknown) date) and more muscular unknown) in nature. Please use also use ibuprofen as (unknown) (no (unknown) (unknown) lower extremity (units (unknown) date) swelling and mild unknown) erythema. Unclear whether cellulitic as the (unknown) (no (unknown) (unknown) marital status: (units (unknown) date) unknown) (unknown) (no (unknown) (unknown) mg tablet (units (unkn own) date) (Lindon) unknown) (unknown) (no (unknown) (unknown) needed for the (units (unknown) date) pain. unknown) (unknown) (no (unknown) (unknown) occupational (units (u nknown) date) status: employed unknown) (unknown) (no (unknown) (unknown) ondansetron HCl (units (unknown) date) 4 mg tablet 4 mg unknown) PO Q6H PRN nausea and 03/27/20 (unknown) (no (unknown) (unknown) ondansetron HCl (units (unknown) date) [Zofran] 4 mg unknown) tablet (unknown) (no (unknown) (unknown) outpatient (units (unk nown) date) therapy. unknown) (unknown) (no (unknown) (unknown) oxycodone 5 mg (units (unknown) date) tablet 5 mg PO unknown) Q4H PRN post operative 04/13/20 (unknown) (no (unknown) (unknown) oxycodone 5 mg (units (unknown) date) tablet unknown) (unknown) (no (unknown) (unknown) pain #30 tabs (units ( unknown) date) unknown) (unknown) (no (unknown) (unknown) rales, or (units (unkn own) date) rhonchi. unknown) (unknown) (no (unknown) (unknown) seizures, (units (unkn own) date) incoordination. unknown) (unknown) (no (unknown) (unknown) substance use (units ( unknown) date) type: does not unknown) use (unknown) (no (unknown) (unknown) swelling onset (units (unknown) date) approximately 3 unknown) days ago. He is not recall any acute injuries to (unknown) (no (unknown) (unknown) the foot. States (units (unknown) date) that it became unknown) red over the last few days and has begun (unknown) (no (unknown) (unknown) tonsillar (units (unkn own) date) hypertrophy or unknown) exudate. Airway patent. (unknown) (no (unknown) (unknown) treat (units (unkno wn) date) empirically for unknown) cellulitis with antibiotics prescribed. I also recommend (unknown) (no (unknown) (unknown) you elevate the (units (unknown) date) foot as well as unknown) uses hot warm compresses in the event that this Result panel 6 (unknown) (no (unknown) (unknown) (no value) (units (unk nown) date) unknown) (unknown) (no (unknown) (unknown) <Electronically (units (unknown) date) signed by Suleiman unknownFelisha Rodriguez> (unknown) (no (unknown) (unknown) (Zofran) (units (unkno wn) date) vomiting #12 tabs unknown) (unknown) (no (unknown) (unknown) 1 tab PO Q6H PRN (units (unknown) date) (Reason: pain) unknown) Qty: 12 0RF (unknown) (no (unknown) (unknown) 06/21/22 1944 (units ( unknown) date) unknown) (unknown) (no (unknown) (unknown) 06/21/22 (units (unkno wn) date) unknown) (unknown) (no (unknown) (unknown) 100 mg PO BID (units ( unknown) date) Qty: 20 0RF unknown) (unknown) (no (unknown) (unknown) 12 point review (units (unknown) date) of systems is unknown) negative except for those stated above (unknown) (no (unknown) (unknown) 16:55 (units (unkno wn) date) unknown) (unknown) (no (unknown) (unknown) 20 mg PO QID PRN (units (unknown) date) (Reason: unknown) abdominal discomfort) Qty: 15 0RF (unknown) (no (unknown) (unknown) 4 mg PO Q6H PRN (units (unknown) date) (Reason: nausea unknown) and vomiting) Qty: 12 0RF (unknown) (no (unknown) (unknown) 5 mg PO DAILY (units ( unknown) date) Qty: 30 0RF unknown) (unknown) (no (unknown) (unknown) 5 mg PO Q4H PRN (units (unknown) date) (Reason: post unknown) operative pain) Qty: 30 0RF (unknown) (no (unknown) (unknown) 500 mg PO QID 7 (units (unknown) date) Days Qty: 28 0RF unknown) (unknown) (no (unknown) (unknown) 52-year-old male (units (unknown) date) presents to the unknown) emergency department due to right foot erythema (unknown) (no (unknown) (unknown) : [id number] (units (u nknown) date) unknown) (unknown) (no (unknown) (unknown) Activity (units (unkno wn) date) Restrictions/Oliver unknown) tional Instructions: (unknown) (no (unknown) (unknown) Acute foot pain, (units (unknown) date) Cellulitis unknown) (unknown) (no (unknown) (unknown) Age/Sex: 52 / M (units (unknown) date) unknown) (unknown) (no (unknown) (unknown) Allergies (units (unkn own) date) unknown) (unknown) (no (unknown) (unknown) Allergy/AdvReac (units (unknown) date) Type Severity unknown) Reaction Status Date / Time (unknown) (no (unknown) (unknown) BACK: Nontender (units (unknown) date) without deformity unknown) or crepitance. No flank tenderness. (unknown) (no (unknown) (unknown) Blood Pressure (units (unknown) date) 153/85 H 06/21/22 unknown) 16:55 (unknown) (no (unknown) (unknown) Blood Pressure (units (unknown) date) 153/85 H unknown) (unknown) (no (unknown) (unknown) CARDIOVASCULAR: (units (unknown) date) Denies chest unknown) pain, palpitations, orthopnea, edema, (unknown) (no (unknown) (unknown) CARDIOVASCULAR: (units (unknown) date) Regular rate and unknown) rhythm without murmurs, gallops, or rubs. (unknown) (no (unknown) (unknown) Chief Complaint: (units (unknown) date) Extremity Injury, unknown) Lower (unknown) (no (unknown) (unknown) Clinical (units (unkno wn) date) Impression: unknown) (unknown) (no (unknown) (unknown) Course (units (unkno wn) date) unknown) (unknown) (no (unknown) (unknown) : 1970 (units (unknown) date) Acct:[id number] unknown) (unknown) (no (unknown) (unknown) Date of Service: (units (unknown) date) 06/21/22 unknown) (unknown) (no (unknown) (unknown) Departure (units (unkn own) date) unknown) (unknown) (no (unknown) (unknown) Discharge Plan (units (unknown) date) unknown) (unknown) (no (unknown) (unknown) ENT: Nose (units (unkn own) date) without bleeding, unknown) purulent drainage. Throat without erythema, (unknown) (no (unknown) (unknown) ER Physician: (units ( unknown) date) Suleiman Rodriguez P.A-C unknown) (unknown) (no (unknown) (unknown) EXTREMITIES: No (units (unknown) date) edema or joint unknown) tenderness. (unknown) (no (unknown) (unknown) EYES: Pupils (units (u nknown) date) equal round and unknown) reactive. Extraocular motions intact. No scleral (unknown) (no (unknown) (unknown) Emergency Report (units (unknown) date) unknown) (unknown) (no (unknown) (unknown) Exam Narrative: (units (unknown) date) unknown) (unknown) (no (unknown) (unknown) Exam (units (unkno wn) date) unknown) (unknown) (no (unknown) (unknown) Family History (units (unknown) date) (Reviewed unknown) 04/28/20 @ 15:19 by Luba Bobby MD) (unknown) (no (unknown) (unknown) Father (units (unkno wn) date) Hypertension unknown) (unknown) (no (unknown) (unknown) GASTROINTESTINAL (units (unknown) date) : Abdomen soft, unknown) non-tender, nondistended. (unknown) (no (unknown) (unknown) GASTROINTESTINAL (units (unknown) date) : Denies nausea, unknown) vomiting, abdominal pain, diarrhea, (unknown) (no (unknown) (unknown) GENERAL: Denies (units (unknown) date) chills, fatigue, unknown) malaise, fever, sweats. (unknown) (no (unknown) (unknown) GENERAL: (units (unkno wn) date) Well-developed unknown) patient, in mild distress. (unknown) (no (unknown) (unknown) : Denies (units (unk nown) date) dysuria, unknown) frequency, incontinence, hematuria, urinary retention. (unknown) (no (unknown) (unknown) Gallstones (units (unk nown) date) unknown) (unknown) (no (unknown) (unknown) General (units (unkno wn) date) unknown) (unknown) (no (unknown) (unknown) HEAD: (units (unkno wn) date) Atraumatic. unknown) Normocephalic. (unknown) (no (unknown) (unknown) HEENT: Denies (units ( unknown) date) sinus pain, ear unknown) pain, sore throat, difficulty swallowing, (unknown) (no (unknown) (unknown) HPI - Extremity (units (unknown) date) Injury (Lower) unknown) (unknown) (no (unknown) (unknown) HPI Narrative: (units (unknown) date) unknown) (unknown) (no (unknown) (unknown) HTN (units (unkno wn) date) (hypertension) unknown) (unknown) (no (unknown) (unknown) History of (units (unk nown) date) Present Illness unknown) (unknown) (no (unknown) (unknown) History of (units (unk nown) date) repair of ACL unknown) (unknown) (no (unknown) (unknown) Hx of knee (units (unk nown) date) surgery unknown) (unknown) (no (unknown) (unknown) Hx of vasectomy (units (unknown) date) unknown) (unknown) (no (unknown) (unknown) I hope you feel (units (unknown) date) better soon. unknown) (unknown) (no (unknown) (unknown) Initial Vital (units ( unknown) date) Signs unknown) (unknown) (no (unknown) (unknown) Initial Vital (units ( unknown) date) Signs: unknown) (unknown) (no (unknown) (unknown) Instructions: DI (units (unknown) date) for Cellulitis -- unknown) Adult, DI for Foot Sprain (unknown) (no (unknown) (unknown) [facility] (units (unknown) date) [address] unknown) [place] [address] (unknown) (no (unknown) (unknown) MDM - Extremity (units (unknown) date) Injury (Lower) unknown) (unknown) (no (unknown) (unknown) MDM Narrative (units ( unknown) date) unknown) (unknown) (no (unknown) (unknown) MUSCULOSKELETAL: (units (unknown) date) denies weakness, unknown) joint pain, or bony pain (unknown) (no (unknown) (unknown) Medical History (units (unknown) date) (Updated 06/21/22 unknown) @ 19:36 by Suleiman Rodriguez PA-C) (unknown) (no (unknown) (unknown) Medical decision (units (unknown) date) making narrative: unknown) (unknown) (no (unknown) (unknown) Medication (units (unk nown) date) Instructions unknown) Recorded (unknown) (no (unknown) (unknown) Mode of arrival: (units (unknown) date) Ambulatory unknown) (unknown) (no (unknown) (unknown) Mother Breast (units ( unknown) date) cancer unknown) (unknown) (no (unknown) (unknown) NECK: Trachea (units ( unknown) date) midline. Non unknown) tender (unknown) (no (unknown) (unknown) NEURO: AOx3. (units (u nknown) date) unknown) (unknown) (no (unknown) (unknown) NEUROLOGIC: (units (un known) date) Denies weakness, unknown) headache, numbness, change in speech, confusion, (unknown) (no (unknown) (unknown) Narrative (units (unkn own) date) unknown) (unknown) (no (unknown) (unknown) Narrative: (units (unk nown) date) unknown) (unknown) (no (unknown) (unknown) New (units (unkno wn) date) unknown) (unknown) (no (unknown) (unknown) No Action (units (unkn own) date) unknown) (unknown) (no (unknown) (unknown) No Known Drug (units ( unknown) date) Allergies Allergy unknown) Verified 04/28/20 09:47 (unknown) (no (unknown) (unknown) Oxygen Delivery (units (unknown) date) Method 06/21/22 unknown) 16:55 (unknown) (no (unknown) (unknown) Oxygen Delivery (units (unknown) date) Method Room Air unknown) (unknown) (no (unknown) (unknown) PSYCHIATRIC: No (units (unknown) date) concerning unknown) psychosocial issues. (unknown) (no (unknown) (unknown) Patient (units (unkno wn) date) Disposition: Home unknown) (unknown) (no (unknown) (unknown) Patient History (units (unknown) date) unknown) (unknown) (no (unknown) (unknown) Patient denies (units (unknown) date) medical problems unknown) (unknown) (no (unknown) (unknown) Patient's vitals (units (unknown) date) reassuring and unknown) comfortable discharging the patient for (unknown) (no (unknown) (unknown) Patient: Michelle (units (unknown) date) Owen Leonard MR# unknown) (unknown) (no (unknown) (unknown) Prescriptions: (units (unknown) date) unknown) (unknown) (no (unknown) (unknown) Previous Rx's (units ( unknown) date) unknown) (unknown) (no (unknown) (unknown) Pulse Oximetry (units (unknown) date) 96 06/21/22 16:55 unknown) (unknown) (no (unknown) (unknown) Pulse Oximetry (units (unknown) date) 96 unknown) (unknown) (no (unknown) (unknown) Pulse Rate 86 (units ( unknown) date) 06/21/22 16:55 unknown) (unknown) (no (unknown) (unknown) Pulse Rate 86 (units ( unknown) date) unknown) (unknown) (no (unknown) (unknown) RESPIRATORY: (units (un known) date) Clear to unknown) auscultation. Breath sounds equal bilaterally. No wheezes, (unknown) (no (unknown) (unknown) RESPIRATORY: (units (u nknown) date) Denies dyspnea, unknown) cough, wheezing, hemoptysis, sputum. (unknown) (no (unknown) (unknown) Related Data (units (u nknown) date) unknown) (unknown) (no (unknown) (unknown) Respiratory Rate (units (unknown) date) 20 06/21/22 16:55 unknown) (unknown) (no (unknown) (unknown) Respiratory Rate (units (unknown) date) 20 unknown) (unknown) (no (unknown) (unknown) Review of (units (unkn own) date) Systems unknown) (unknown) (no (unknown) (unknown) SKIN: Cool area (units (unknown) date) of erythema to unknown) the medial aspect of the foot. No areas of (unknown) (no (unknown) (unknown) SKIN: Foot rash (units (unknown) date) unknown) (unknown) (no (unknown) (unknown) Signed By: (units (unk nown) date) unknown) (unknown) (no (unknown) (unknown) Smoking Status: (units (unknown) date) Never smoker unknown) (unknown) (no (unknown) (unknown) Social History (units (unknown) date) (Reviewed unknown) 04/28/20 @ 15:19 by Luba Bobby MD) (unknown) (no (unknown) (unknown) Source: patient (units (unknown) date) unknown) (unknown) (no (unknown) (unknown) Stand Alone (units (un known) date) Forms: Work unknown) Release Note (unknown) (no (unknown) (unknown) Stated (units (unkno wn) date) Complaint: rt unknown) foot pain, swelling a lot (unknown) (no (unknown) (unknown) Substance Use (units ( unknown) date) Type: does not unknown) use (unknown) (no (unknown) (unknown) Surgical History (units (unknown) date) (Reviewed unknown) 04/28/20 @ 15:19 by Luba Bobby MD) (unknown) (no (unknown) (unknown) Temperature 97.1 (units (unknown) date) F L 06/21/22 unknown) 16:55 (unknown) (no (unknown) (unknown) Temperature 97.1 (units (unknown) date) F L unknown) (unknown) (no (unknown) (unknown) Thank you for (units ( unknown) date) coming to the unknown) [facility] Emergency Department today. We will (unknown) (no (unknown) (unknown) Then the redness (units (unknown) date) developing became unknown) concerned. Patient is nondiabetic is a (unknown) (no (unknown) (unknown) This is a (units (unkn own) date) 52-year-old male unknown) presenting to the emergency department due to right (unknown) (no (unknown) (unknown) Time Seen by (units (u nknown) date) Provider: unknown) 06/21/22 18:14 (unknown) (no (unknown) (unknown) Visit Report (units (u nknown) date) Forms: Patient unknown) Portal/API (unknown) (no (unknown) (unknown) Vital Signs - 8 (units (unknown) date) hr unknown) (unknown) (no (unknown) (unknown) Vital Signs (units (un known) date) unknown) (unknown) (no (unknown) (unknown) Vital signs: (units (u nknown) date) unknown) (unknown) (no (unknown) (unknown) alcohol intake (units (unknown) date) frequency: a few unknown) times a week (unknown) (no (unknown) (unknown) alcohol intake: (units (unknown) date) current unknown) (unknown) (no (unknown) (unknown) amlodipine 5 mg (units (unknown) date) tablet 5 mg PO unknown) DAILY #30 tabs 03/27/20 (unknown) (no (unknown) (unknown) amlodipine 5 mg (units (unknown) date) tablet unknown) (unknown) (no (unknown) (unknown) being diabetic. (units (unknown) date) unknown) (unknown) (no (unknown) (unknown) cephalexin 500 (units (unknown) date) mg capsule 500 mg unknown) PO QID 7 days #28 caps 06/21/22 (unknown) (no (unknown) (unknown) cephalexin 500 (units (unknown) date) mg capsule unknown) (unknown) (no (unknown) (unknown) constipation, (units ( unknown) date) melena. unknown) (unknown) (no (unknown) (unknown) dicyclomine 20 (units (unknown) date) mg tablet 20 mg unknown) PO QID PRN abdominal 03/27/20 (unknown) (no (unknown) (unknown) dicyclomine 20 (units (unknown) date) mg tablet unknown) (unknown) (no (unknown) (unknown) discomfort #15 (units (unknown) date) tabs unknown) (unknown) (no (unknown) (unknown) dizziness. (units (unk nown) date) unknown) (unknown) (no (unknown) (unknown) docusate sodium (units (unknown) date) 100 mg capsule unknown) 100 mg PO BID prevent constipation 04/13/20 (unknown) (no (unknown) (unknown) docusate sodium (units (unknown) date) 100 mg capsule unknown) (unknown) (no (unknown) (unknown) erythematous. (units ( unknown) date) Will treat unknown) empirically with oral antibiotics as well as (unknown) (no (unknown) (unknown) expressing (units (unk nown) date) concern. Denies unknown) any fevers, nausea, vomiting, or chills. Denies (unknown) (no (unknown) (unknown) fluctuance. (units (un known) date) Diffuse mild unknown) tenderness to palpation. (unknown) (no (unknown) (unknown) foot did appear (units (unknown) date) red but was very unknown) close to the touch and only very mildly (unknown) (no (unknown) (unknown) from pain meds (units (unknown) date) #20 caps unknown) (unknown) (no (unknown) (unknown) household (units (unkn own) date) members: spouse unknown) (unknown) (no (unknown) (unknown) hydrocodone 5 (units ( unknown) date) mg-acetaminophen unknown) 325 1 tab PO Q6H PRN pain #12 tabs 03/27/20 (unknown) (no (unknown) (unknown) hydrocodone-acet (units (unknown) date) aminophen [Lindon] unknown) 5-325 mg tablet (unknown) (no (unknown) (unknown) icterus. No (units (un known) date) injection or unknown) drainage. (unknown) (no (unknown) (unknown) instructions to (units (unknown) date) treat with ice, unknown) warm compresses, elevation as well as NSAIDs. (unknown) (no (unknown) (unknown) is a bad sprain (units (unknown) date) and more muscular unknown) in nature. Please use also use ibuprofen as (unknown) (no (unknown) (unknown) lower extremity (units (unknown) date) swelling and mild unknown) erythema. Unclear whether cellulitic as the (unknown) (no (unknown) (unknown) marital status: (units (unknown) date) unknown) (unknown) (no (unknown) (unknown) mg tablet (units (unkn own) date) (Lindon) unknown) (unknown) (no (unknown) (unknown) needed for the (units (unknown) date) pain. unknown) (unknown) (no (unknown) (unknown) occupational (units (u nknown) date) status: employed unknown) (unknown) (no (unknown) (unknown) ondansetron HCl (units (unknown) date) 4 mg tablet 4 mg unknown) PO Q6H PRN nausea and 03/27/20 (unknown) (no (unknown) (unknown) ondansetron HCl (units (unknown) date) [Zofran] 4 mg unknown) tablet (unknown) (no (unknown) (unknown) outpatient (units (unk nown) date) therapy. unknown) (unknown) (no (unknown) (unknown) oxycodone 5 mg (units (unknown) date) tablet 5 mg PO unknown) Q4H PRN post operative 04/13/20 (unknown) (no (unknown) (unknown) oxycodone 5 mg (units (unknown) date) tablet unknown) (unknown) (no (unknown) (unknown) pain #30 tabs (units ( unknown) date) unknown) (unknown) (no (unknown) (unknown) rales, or (units (unkn own) date) rhonchi. unknown) (unknown) (no (unknown) (unknown) seizures, (units (unkn own) date) incoordination. unknown) (unknown) (no (unknown) (unknown) substance use (units ( unknown) date) type: does not unknown) use (unknown) (no (unknown) (unknown) swelling onset (units (unknown) date) approximately 3 unknown) days ago. He is not recall any acute injuries to (unknown) (no (unknown) (unknown) the foot. States (units (unknown) date) that it became unknown) red over the last few days and has begun (unknown) (no (unknown) (unknown) tonsillar (units (unkn own) date) hypertrophy or unknown) exudate. Airway patent. (unknown) (no (unknown) (unknown) treat (units (unkno wn) date) empirically for unknown) cellulitis with antibiotics prescribed. I also recommend (unknown) (no (unknown) (unknown) you elevate the (units (unknown) date) foot as well as unknown) uses hot warm compresses in the event that this Result panel 7 (unknown) (no (unknown) (unknown) (no value) (units (unk nown) date) unknown) (unknown) (no (unknown) (unknown) <Electronically (units (unknown) date) signed by Shayna unknown) Yousuf D.O.> (unknown) (no (unknown) (unknown) <Electronically (units (unknown) date) signed by Shayna unknown) Yousuf D.O.> (unknown) (no (unknown) (unknown) <Electronically (units (unknown) date) signed by Suleiman unknown) Elton Rodriguez> (unknown) (no (unknown) (unknown) <Shayna To, (units (unknown) date) DO - Last Filed: unknown) 06/22/22 08:58> (unknown) (no (unknown) (unknown) <Suleiman Rodriguez PA-C (units (unknown) date) - Last Filed: unknown) 06/21/22 19:38> (unknown) (no (unknown) (unknown) <cosigner> (units (unk nown) date) unknown) (unknown) (no (unknown) (unknown) (Zofran) (units (unkno wn) date) vomiting #12 tabs unknown) (unknown) (no (unknown) (unknown) 1 tab PO Q6H PRN (units (unknown) date) (Reason: pain) unknown) Qty: 12 0RF (unknown) (no (unknown) (unknown) 06/21/22 1944 (units ( unknown) date) unknown) (unknown) (no (unknown) (unknown) 06/21/22 (units (unkno wn) date) unknown) (unknown) (no (unknown) (unknown) 06/22/22 0858 (units ( unknown) date) unknown) (unknown) (no (unknown) (unknown) 100 mg PO BID (units ( unknown) date) Qty: 20 0RF unknown) (unknown) (no (unknown) (unknown) 12 point review (units (unknown) date) of systems is unknown) negative except for those stated above (unknown) (no (unknown) (unknown) 16:55 (units (unkno wn) date) unknown) (unknown) (no (unknown) (unknown) 20 mg PO QID PRN (units (unknown) date) (Reason: unknown) abdominal discomfort) Qty: 15 0RF (unknown) (no (unknown) (unknown) 4 mg PO Q6H PRN (units (unknown) date) (Reason: nausea unknown) and vomiting) Qty: 12 0RF (unknown) (no (unknown) (unknown) 5 mg PO DAILY (units ( unknown) date) Qty: 30 0RF unknown) (unknown) (no (unknown) (unknown) 5 mg PO Q4H PRN (units (unknown) date) (Reason: post unknown) operative pain) Qty: 30 0RF (unknown) (no (unknown) (unknown) 500 mg PO QID 7 (units (unknown) date) Days Qty: 28 0RF unknown) (unknown) (no (unknown) (unknown) 52-year-old male (units (unknown) date) presents to the unknown) emergency department due to right foot erythema (unknown) (no (unknown) (unknown) : [id number] (units (u nknown) date) unknown) (unknown) (no (unknown) (unknown) Activity (units (unkno wn) date) Restrictions/Oliver unknown) tional Instructions: (unknown) (no (unknown) (unknown) Acute foot pain, (units (unknown) date) Cellulitis unknown) (unknown) (no (unknown) (unknown) Age/Sex: 52 / M (units (unknown) date) unknown) (unknown) (no (unknown) (unknown) Allergies (units (unkn own) date) unknown) (unknown) (no (unknown) (unknown) Allergy/AdvReac (units (unknown) date) Type Severity unknown) Reaction Status Date / Time (unknown) (no (unknown) (unknown) BACK: Nontender (units (unknown) date) without deformity unknown) or crepitance. No flank tenderness. (unknown) (no (unknown) (unknown) Blood Pressure (units (unknown) date) 153/85 H 06/21/22 unknown) 16:55 (unknown) (no (unknown) (unknown) Blood Pressure (units (unknown) date) 153/85 H unknown) (unknown) (no (unknown) (unknown) CARDIOVASCULAR: (units (unknown) date) Denies chest unknown) pain, palpitations, orthopnea, edema, (unknown) (no (unknown) (unknown) CARDIOVASCULAR: (units (unknown) date) Regular rate and unknown) rhythm without murmurs, gallops, or rubs. (unknown) (no (unknown) (unknown) Chief Complaint: (units (unknown) date) Extremity Injury, unknown) Lower (unknown) (no (unknown) (unknown) Clinical (units (unkno wn) date) Impression: unknown) (unknown) (no (unknown) (unknown) Cosign (units (unkno wn) date) unknown) (unknown) (no (unknown) (unknown) Course (units (unkno wn) date) unknown) (unknown) (no (unknown) (unknown) : 1970 (units (unknown) date) Acct:[id number] unknown) (unknown) (no (unknown) (unknown) Date of Service: (units (unknown) date) 06/21/22 unknown) (unknown) (no (unknown) (unknown) Departure (units (unkn own) date) unknown) (unknown) (no (unknown) (unknown) Discharge Plan (units (unknown) date) unknown) (unknown) (no (unknown) (unknown) ED Attending (units (u nknown) date) Cosignature unknown) Attestation: (unknown) (no (unknown) (unknown) ENT: Nose (units (unkn own) date) without bleeding, unknown) purulent drainage. Throat without erythema, (unknown) (no (unknown) (unknown) ER Physician: (units ( unknown) date) Suleiman Rodriguez P.A-C unknown) (unknown) (no (unknown) (unknown) EXTREMITIES: No (units (unknown) date) edema or joint unknown) tenderness. (unknown) (no (unknown) (unknown) EYES: Pupils (units (u nknown) date) equal round and unknown) reactive. Extraocular motions intact. No scleral (unknown) (no (unknown) (unknown) Emergency Report (units (unknown) date) unknown) (unknown) (no (unknown) (unknown) Exam Narrative: (units (unknown) date) unknown) (unknown) (no (unknown) (unknown) Exam (units (unkno wn) date) unknown) (unknown) (no (unknown) (unknown) Family History (units (unknown) date) (Reviewed unknown) 04/28/20 @ 15:19 by Luba Bobby MD) (unknown) (no (unknown) (unknown) Father (units (unkno wn) date) Hypertension unknown) (unknown) (no (unknown) (unknown) GASTROINTESTINAL (units (unknown) date) : Abdomen soft, unknown) non-tender, nondistended. (unknown) (no (unknown) (unknown) GASTROINTESTINAL (units (unknown) date) : Denies nausea, unknown) vomiting, abdominal pain, diarrhea, (unknown) (no (unknown) (unknown) GENERAL: Denies (units (unknown) date) chills, fatigue, unknown) malaise, fever, sweats. (unknown) (no (unknown) (unknown) GENERAL: (units (unkno wn) date) Well-developed unknown) patient, in mild distress. (unknown) (no (unknown) (unknown) : Denies (units (unk nown) date) dysuria, unknown) frequency, incontinence, hematuria, urinary retention. (unknown) (no (unknown) (unknown) Gallstones (units (unk nown) date) unknown) (unknown) (no (unknown) (unknown) General (units (unkno wn) date) unknown) (unknown) (no (unknown) (unknown) HEAD: (units (o wn) date) Atraumatic. unknown) Normocephalic. (unknown) (no (unknown) (unknown) HEENT: Denies (units ( unknown) date) sinus pain, ear unknown) pain, sore throat, difficulty swallowing, (unknown) (no (unknown) (unknown) HPI - Extremity (units (unknown) date) Injury (Lower) unknown) (unknown) (no (unknown) (unknown) HPI Narrative: (units (unknown) date) unknown) (unknown) (no (unknown) (unknown) HTN (units (o wn) date) (hypertension) unknown) (unknown) (no (unknown) (unknown) History of (units (unk n) date) Present Illness unknown) (unknown) (no (unknown) (unknown) History of (units (unk n) date) repair of ACL unknown) (unknown) (no (unknown) (unknown) Hx of knee (units (unk nown) date) surgery unknown) (unknown) (no (unknown) (unknown) Hx of vasectomy (units (unknown) date) unknown) (unknown) (no (unknown) (unknown) I hope you feel (units (unknown) date) better soon. unknown) (unknown) (no (unknown) (unknown) I was (units (o wn) date) immediately unknown) available in the department for consultation. Documentation (unknown) (no (unknown) (unknown) Initial Vital (units ( unknown) date) Signs unknown) (unknown) (no (unknown) (unknown) Initial Vital (units ( unknown) date) Signs: unknown) (unknown) (no (unknown) (unknown) Instructions: DI (units (unknown) date) for Cellulitis -- unknown) Adult, DI for Foot Sprain (unknown) (no (unknown) (unknown) [facility] (units (unknown) date) [address] unknown) [place] [address] (unknown) (no (unknown) (unknown) MDM - Extremity (units (unknown) date) Injury (Lower) unknown) (unknown) (no (unknown) (unknown) MDM Narrative (units ( unknown) date) unknown) (unknown) (no (unknown) (unknown) MUSCULOSKELETAL: (units (unknown) date) denies weakness, unknown) joint pain, or bony pain (unknown) (no (unknown) (unknown) Medical History (units (unknown) date) (Updated 06/21/22 unknown) @ 19:36 by Suleiman Rodriguez PA-C) (unknown) (no (unknown) (unknown) Medical decision (units (unknown) date) making narrative: unknown) (unknown) (no (unknown) (unknown) Medication (units (unk nown) date) Instructions unknown) Recorded (unknown) (no (unknown) (unknown) Mode of arrival: (units (unknown) date) Ambulatory unknown) (unknown) (no (unknown) (unknown) Mother Breast (units ( unknown) date) cancer unknown) (unknown) (no (unknown) (unknown) NECK: Trachea (units ( unknown) date) midline. Non unknown) tender (unknown) (no (unknown) (unknown) NEURO: AOx3. (units (u nknown) date) unknown) (unknown) (no (unknown) (unknown) NEUROLOGIC: (units (un known) date) Denies weakness, unknown) headache, numbness, change in speech, confusion, (unknown) (no (unknown) (unknown) Narrative (units (unkn own) date) unknown) (unknown) (no (unknown) (unknown) Narrative: (units (unk nown) date) unknown) (unknown) (no (unknown) (unknown) New (units (unkno wn) date) unknown) (unknown) (no (unknown) (unknown) No Action (units (unkn own) date) unknown) (unknown) (no (unknown) (unknown) No Known Drug (units ( unknown) date) Allergies Allergy unknown) Verified 04/28/20 09:47 (unknown) (no (unknown) (unknown) Oxygen Delivery (units (unknown) date) Method 06/21/22 unknown) 16:55 (unknown) (no (unknown) (unknown) Oxygen Delivery (units (unknown) date) Method Room Air unknown) (unknown) (no (unknown) (unknown) PSYCHIATRIC: No (units (unknown) date) concerning unknown) psychosocial issues. (unknown) (no (unknown) (unknown) Patient (units (unkno wn) date) Disposition: Home unknown) (unknown) (no (unknown) (unknown) Patient History (units (unknown) date) unknown) (unknown) (no (unknown) (unknown) Patient denies (units (unknown) date) medical problems unknown) (unknown) (no (unknown) (unknown) Patient's vitals (units (unknown) date) reassuring and unknown) comfortable discharging the patient for (unknown) (no (unknown) (unknown) Patient: Michelle (units (unknown) date) Owen Leonard MR# unknown) (unknown) (no (unknown) (unknown) Prescriptions: (units (unknown) date) unknown) (unknown) (no (unknown) (unknown) Previous Rx's (units ( unknown) date) unknown) (unknown) (no (unknown) (unknown) Pulse Oximetry (units (unknown) date) 96 06/21/22 16:55 unknown) (unknown) (no (unknown) (unknown) Pulse Oximetry (units (unknown) date) 96 unknown) (unknown) (no (unknown) (unknown) Pulse Rate 86 (units ( unknown) date) 06/21/22 16:55 unknown) (unknown) (no (unknown) (unknown) Pulse Rate 86 (units ( unknown) date) unknown) (unknown) (no (unknown) (unknown) RESPIRATORY: (units (un known) date) Clear to unknown) auscultation. Breath sounds equal bilaterally. No wheezes, (unknown) (no (unknown) (unknown) RESPIRATORY: (units (u nknown) date) Denies dyspnea, unknown) cough, wheezing, hemoptysis, sputum. (unknown) (no (unknown) (unknown) Related Data (units (u nknown) date) unknown) (unknown) (no (unknown) (unknown) Respiratory Rate (units (unknown) date) 20 06/21/22 16:55 unknown) (unknown) (no (unknown) (unknown) Respiratory Rate (units (unknown) date) 20 unknown) (unknown) (no (unknown) (unknown) Review of (units (unkn own) date) Systems unknown) (unknown) (no (unknown) (unknown) SKIN: Cool area (units (unknown) date) of erythema to unknown) the medial aspect of the foot. No areas of (unknown) (no (unknown) (unknown) SKIN: Foot rash (units (unknown) date) unknown) (unknown) (no (unknown) (unknown) Signed By: (units (unk nown) date) unknown) (unknown) (no (unknown) (unknown) Smoking Status: (units (unknown) date) Never smoker unknown) (unknown) (no (unknown) (unknown) Social History (units (unknown) date) (Reviewed unknown) 04/28/20 @ 15:19 by Luba Bobby MD) (unknown) (no (unknown) (unknown) Source: patient (units (unknown) date) unknown) (unknown) (no (unknown) (unknown) Stand Alone (units (un known) date) Forms: Work unknown) Release Note (unknown) (no (unknown) (unknown) Stated (units (unkno wn) date) Complaint: rt unknown) foot pain, swelling a lot (unknown) (no (unknown) (unknown) Substance Use (units ( unknown) date) Type: does not unknown) use (unknown) (no (unknown) (unknown) Surgical History (units (unknown) date) (Reviewed unknown) 04/28/20 @ 15:19 by Luba Bobby MD) (unknown) (no (unknown) (unknown) Temperature 97.1 (units (unknown) date) F L 06/21/22 unknown) 16:55 (unknown) (no (unknown) (unknown) Temperature 97.1 (units (unknown) date) F L unknown) (unknown) (no (unknown) (unknown) Thank you for (units ( unknown) date) coming to the unknown) [facility] Emergency Department today. We will (unknown) (no (unknown) (unknown) Then the redness (units (unknown) date) developing became unknown) concerned. Patient is nondiabetic is a (unknown) (no (unknown) (unknown) This is a (units (unkn own) date) 52-year-old male unknown) presenting to the emergency department due to right (unknown) (no (unknown) (unknown) Time Seen by (units (u nknown) date) Provider: unknown) 06/21/22 18:14 (unknown) (no (unknown) (unknown) Visit Report (units (u nknown) date) Forms: Patient unknown) Portal/API (unknown) (no (unknown) (unknown) Vital Signs - 8 (units (unknown) date) hr unknown) (unknown) (no (unknown) (unknown) Vital Signs (units (un known) date) unknown) (unknown) (no (unknown) (unknown) Vital signs: (units (u nknown) date) unknown) (unknown) (no (unknown) (unknown) alcohol intake (units (unknown) date) frequency: a few unknown) times a week (unknown) (no (unknown) (unknown) alcohol intake: (units (unknown) date) current unknown) (unknown) (no (unknown) (unknown) amlodipine 5 mg (units (unknown) date) tablet 5 mg PO unknown) DAILY #30 tabs 03/27/20 (unknown) (no (unknown) (unknown) amlodipine 5 mg (units (unknown) date) tablet unknown) (unknown) (no (unknown) (unknown) being diabetic. (units (unknown) date) unknown) (unknown) (no (unknown) (unknown) cephalexin 500 (units (unknown) date) mg capsule 500 mg unknown) PO QID 7 days #28 caps 06/21/22 (unknown) (no (unknown) (unknown) cephalexin 500 (units (unknown) date) mg capsule unknown) (unknown) (no (unknown) (unknown) constipation, (units ( unknown) date) melena. unknown) (unknown) (no (unknown) (unknown) dicyclomine 20 (units (unknown) date) mg tablet 20 mg unknown) PO QID PRN abdominal 03/27/20 (unknown) (no (unknown) (unknown) dicyclomine 20 (units (unknown) date) mg tablet unknown) (unknown) (no (unknown) (unknown) discomfort #15 (units (unknown) date) tabs unknown) (unknown) (no (unknown) (unknown) dizziness. (units (unk nown) date) unknown) (unknown) (no (unknown) (unknown) docusate sodium (units (unknown) date) 100 mg capsule unknown) 100 mg PO BID prevent constipation 04/13/20 (unknown) (no (unknown) (unknown) docusate sodium (units (unknown) date) 100 mg capsule unknown) (unknown) (no (unknown) (unknown) erythematous. (units ( unknown) date) Will treat unknown) empirically with oral antibiotics as well as (unknown) (no (unknown) (unknown) expressing (units (unk nown) date) concern. Denies unknown) any fevers, nausea, vomiting, or chills. Denies (unknown) (no (unknown) (unknown) fluctuance. (units (un known) date) Diffuse mild unknown) tenderness to palpation. (unknown) (no (unknown) (unknown) foot did appear (units (unknown) date) red but was very unknown) close to the touch and only very mildly (unknown) (no (unknown) (unknown) from pain meds (units (unknown) date) #20 caps unknown) (unknown) (no (unknown) (unknown) has been (units (unkno wn) date) reviewed. I agree unknown) with assessment and plan. (unknown) (no (unknown) (unknown) household (units (unkn own) date) members: spouse unknown) (unknown) (no (unknown) (unknown) hydrocodone 5 (units ( unknown) date) mg-acetaminophen unknown) 325 1 tab PO Q6H PRN pain #12 tabs 03/27/20 (unknown) (no (unknown) (unknown) hydrocodone-acet (units (unknown) date) aminophen [Lindon] unknown) 5-325 mg tablet (unknown) (no (unknown) (unknown) icterus. No (units (un known) date) injection or unknown) drainage. (unknown) (no (unknown) (unknown) instructions to (units (unknown) date) treat with ice, unknown) warm compresses, elevation as well as NSAIDs. (unknown) (no (unknown) (unknown) is a bad sprain (units (unknown) date) and more muscular unknown) in nature. Please use also use ibuprofen as (unknown) (no (unknown) (unknown) lower extremity (units (unknown) date) swelling and mild unknown) erythema. Unclear whether cellulitic as the (unknown) (no (unknown) (unknown) marital status: (units (unknown) date) unknown) (unknown) (no (unknown) (unknown) mg tablet (units (unkn own) date) (Lindon) unknown) (unknown) (no (unknown) (unknown) needed for the (units (unknown) date) pain. unknown) (unknown) (no (unknown) (unknown) occupational (units (u nknown) date) status: employed unknown) (unknown) (no (unknown) (unknown) ondansetron HCl (units (unknown) date) 4 mg tablet 4 mg unknown) PO Q6H PRN nausea and 03/27/20 (unknown) (no (unknown) (unknown) ondansetron HCl (units (unknown) date) [Zofran] 4 mg unknown) tablet (unknown) (no (unknown) (unknown) outpatient (units (unk nown) date) therapy. unknown) (unknown) (no (unknown) (unknown) oxycodone 5 mg (units (unknown) date) tablet 5 mg PO unknown) Q4H PRN post operative 04/13/20 (unknown) (no (unknown) (unknown) oxycodone 5 mg (units (unknown) date) tablet unknown) (unknown) (no (unknown) (unknown) pain #30 tabs (units ( unknown) date) unknown) (unknown) (no (unknown) (unknown) rales, or (units (unkn own) date) rhonchi. unknown) (unknown) (no (unknown) (unknown) seizures, (units (unkn own) date) incoordination. unknown) (unknown) (no (unknown) (unknown) substance use (units ( unknown) date) type: does not unknown) use (unknown) (no (unknown) (unknown) swelling onset (units (unknown) date) approximately 3 unknown) days ago. He is not recall any acute injuries to (unknown) (no (unknown) (unknown) the foot. States (units (unknown) date) that it became unknown) red over the last few days and has begun (unknown) (no (unknown) (unknown) tonsillar (units (unkn own) date) hypertrophy or unknown) exudate. Airway patent. (unknown) (no (unknown) (unknown) treat (units (unkno wn) date) empirically for unknown) cellulitis with antibiotics prescribed. I also recommend (unknown) (no (unknown) (unknown) you elevate the (units (unknown) date) foot as well as unknown) uses hot warm compresses in the event that this Social History No information. Vital Signs No information.
--- NOTE | 2022-06-26 11:20 | Ultrasound Report ---
PROCEDURE: Duplex Ext Veins Right INDICATIONS: right ankle/foot recent infection; calf pain now TECHNIQUE: Real-time imaging, as well as color and pulse Doppler interrogation, were performed of the lower extr emity deep veins from the inguinal ligament to the popliteal fossa. COMPARISON: None. FINDINGS: The deep veins are normally compressible, and free of intraluminal thrombus. Color and pu lse Doppler demonstrate normal phasic intraluminal flow. There is normal augmentation response to di stal compression maneuver. IMPRESSION: No sonographic evidence of DVT. Reviewed by: Jose Martínez MD on 06/26/2022 11:19 AM PDT Approved by: Jose Martínez MD on 06/26/2022 11:19 AM PDT Station ID: [id number]
[2022-06-26 11:56] VITALS: BP 138/88
== END 2022-06-26 11:48 | disposition home or self-care (01) ==
LOC: ED 09:53
DX: M76.61 Achilles tendinitis, right leg (principal)
CPT/HCPCS: 93971; 99282; 99284; A9270

== ENCOUNTER 2023-11-14 07:12 | Outpatient (CLI) | payer OTHER ==
[2023-11-14 11:41] LABS: BASOPHILS # (AUTO) 0.1 10^3/uL (0.0-0.1); BASOPHILS % (AUTO) 0.8 %; EOSINOPHILS # (AUTO) 0.2 10^3/uL (0.0-0.7); EOSINOPHILS % (AUTO) 3.2 %; HCT - HEMATOCRIT 44.4 % (42.0-52.0); HGB - HEMOGLOBIN 15.9 g/dL (14.0-18.0); LYMPHOCYTES # (AUTO) 1.4 10^3/uL (1.5-3.5); LYMPHOCYTES % (AUTO) 23.9 %; MEAN CORPUSCULAR HEMOGLOBIN 31.2 pg (27.0-31.0); MEAN CORPUSCULAR HGB CONC 35.8 g/dL (32.0-36.0); MEAN CORPUSCULAR VOLUME 87.1 fL (80.0-94.0); MEAN PLATELET VOLUME 9.8 fL (7.4-11.4); MONOCYTES # (AUTO) 0.5 10^3/uL (0.0-1.0); MONOCYTES % (AUTO) 8.6 %; NEUTROPHILS # (AUTO) 3.8 10^3/uL (1.5-6.6); NEUTROPHILS % (AUTO) 63.2 %; PLT - PLATELET COUNT 275 10^3/uL (130-450); RED CELL DISTRIBUTION WIDTH 12.6 % (12.0-15.0)
[2023-11-14 12:35] LABS: THYROID STIMULATING HORMONE 1.75 uIU/mL (0.34-5.60)
[2023-11-14 12:38] LABS: ALBUMIN 4.4 g/dL (3.2-5.5); ALBUMIN/GLOBULIN RATIO 1.8 (1.0-2.2); ALKALINE PHOSPHATASE 87 IU/L (42-121); ALT ALANINE AMINOTRANSFERASE 32 IU/L (10-60); AST ASPARTATE AMINOTRANSFERASE 20 IU/L (10-42); BILIRUBIN,TOTAL 1.8 mg/dL (0.2-1.0); BUN - BLOOD UREA NITROGEN 10 mg/dL (6-20); CALCIUM 9.5 mg/dL (8.5-10.3); CARBON DIOXIDE - CO2 26 mmol/L (21-32); CHLORIDE 103 mmol/L (101-111); CHOL/HDL RATIO 5.6 (<5.0); CHOLESTEROL 185 mg/dL; CREATININE 0.8 mg/dL (0.6-1.3); GFR - MDRD 101 (>89); GLUCOSE 115 mg/dL (74-104); HDL CHOLESTEROL 33 mg/dL; LDL CHOLESTEROL,CALCULATED 131 mg/dL; POTASSIUM 3.5 mmol/L (3.5-4.5); SODIUM 136 mmol/L (135-145); TOTAL PROTEIN 6.8 g/dL (6.4-8.9); TRIGLYCERIDES 107 mg/dL (48-352); VLDL CHOLESTEROL 21 mg/dL
[2023-11-14 12:41] LABS: BILIRUBIN,URINE NEGATIVE (NEGATIVE); CLARITY,URINE CLEAR (CLEAR); GLUCOSE, URINE (UA) NEGATIVE (NEGATIVE); KETONES,URINE (UA) NEGATIVE (NEGATIVE); LEUKOCYTE ESTERASE, URINE NEGATIVE (NEGATIVE); NITRITE,URINE NEGATIVE (NEGATIVE); OCCULT BLOOD,URINE NEGATIVE (NEGATIVE); PROTEIN,URINE NEGATIVE (NEGATIVE); UROBILINOGEN,URINE 0.2 (NORMAL) E.U./dL (NORMAL)
== END 2023-11-14 07:13 | disposition home or self-care (01) ==
LOC: LAB.N 07:12
PROVIDERS: ATTEND Physician Assistant
DX: I10 Essential (primary) hypertension (principal); E78.6 Lipoprotein deficiency; Z80.52 Family history of malignant neoplasm of bladder; Z12.5 Encounter for screening for malignant neoplasm of prostate; Z13.29 Encounter for screening for other suspected endocrine disorder
CPT/HCPCS: 36415; 80053; 80061; 81001; 81003; 83721; 84153; 84443; 85025; 87086